=== PATIENT | male | born 1955 | race African-American/Black ===

== ENCOUNTER 2019-01-06 18:56 | Inpatient (IN) ==
[2019-01-06] MEDS ORDERED: NS 1,000 ML IV ONE ×2 (19:28→21:50)
[2019-01-06 19:56] LABS: BASO# 0.01 X1000 (0.0-0.2); BASO% 0.1 % (0.0-0.8); EOS# 0.11 X1000 (0.0-0.7); EOS% 1.2 % (0.0-10.0); HEMOGLOBIN 13.5 g/dL (14.0-18.0); IMM GRAN# 0.05 X1000 (0.0-0.04); IMM GRAN% 0.5 % (0.0-0.5); LYMPH# 0.41 X1000 (1.2-3.4); LYMPH% 4.4 % (20.5-51.1); MCH 31.4 PG (27-31); MCHC 34.6 g/dL (33-37); MCV 90.7 FL (81-99); MONO# 0.27 X1000 (0.11-0.59); MONO% 2.9 % (1.7-9.3); MPV 10.4 FL (7.4-10.4); NEUT# 8.45 X1000 (1.4-6.5); NEUT% 90.9 % (42.2-75.2); PLT 55 X1000 (130-400); RDW 12.8 % (11.5-14.5)
[2019-01-06] MEDS ORDERED: MAXIPIME 2 GM in NS 100 ML IV ONE (20:02)
[2019-01-06 20:30] LABS: ALB/GLOB RATIO 2.5; ALBUMIN 4.3 g/dL (3.5-5.0); CALCIUM 9.2 mg/dL (8.8-10.2); CREATININE 1.6 mg/dL (0.7-1.2); POTASSIUM 3.8 mmol/L (3.5-5.1); TOTAL BILIRUBIN 1.28 mg/dL (0.20-1.00)
[2019-01-06 20:35] LABS: INR 1.25; PROTIME 16.6 Seconds (11.0-16.0)
[2019-01-06 20:36] LABS: PTT 53.2 Seconds (22.3-41.8)
[2019-01-06] MEDS ORDERED: FENTANYL IV ONE (20:44)
[2019-01-06] MEDS ORDERED: VANCOMYCIN 1 GM/NS 1 GM/250 ML IVPB IV ONE (20:45)
--- NOTE | 2019-01-06 20:52 | Diag Imaging Result Doc PS360 ---
CHEST-2 VIEWS - 01/06/2019 INDICATION: cough COMPARISON: 04/27/2018 FINDINGS: There is extensive left lower lobe infiltrate compatible with pneumonia. Stable left chest port in good position. The right lung is clear. No pneumothorax or pleural effusion. IMPRESSION: Left lower lobe pneumonia. Electronically signed by Sean Del Rio 01/06/2019 8:50 PM
--- NOTE | 2019-01-06 21:34 | Diag Imaging Result Doc PS360 ---
CT ABD/PELVIS W/IV CONT ONLY - 01/06/2019 INDICATION: abdominal pain; fever; lymphoma COMPARISON: 08/19/2018, 06/13/2014 FINDINGS: There is severe infiltrate throughout the left lower lobe and a small amount lingula. There is also small infiltrate in the right lower lobe. Heart size is normal with no pericardial effusion. There are several bilateral nonobstructing renal stones. There is bilateral renal scarring. No adenopathy. There is some mild nonspecific edema at the root of the mesentery. The pancreas is atrophic. The liver, gallbladder, spleen, and adrenals are normal. No bowel obstruction or inflammation. Urinary bladder, prostate, and rectum are normal. There are moderate degenerative changes of the spine. No acute or suspicious bony lesion. IMPRESSION: 1. Significant bilateral multilobar pneumonia. 2. Bilateral nonobstructing renal stones and renal scarring stable from prior exams. This exam was performed using automated exposure control, adjustment of mA or kV according to patient size, and/or use of iterative reconstruction technique Electronically signed by Sean Del Rio 01/06/2019 9:32 PM
[2019-01-06 21:45] LABS: URINE SOURCE CLEAN CATCH
--- NOTE | 2019-01-06 22:05 | PROVIDER DOCUMENTATION ---
This chart was entered by Michaela Nino Scribe, acting as scribe for Carlitos Johnston MD. HPI-Respiratory General - General Chief Complaint: Possible Sepsis-D Stated Complaint: PNEUMONIA, HARD TO BREATHE(SENT FROM [facility]) Time Seen by Provider: 01/06/19 19:07 Source: patient Allergies/Adverse Reactions: Patient Allergies Allergy/AdvReac Type Severity Reaction Status Date / Time No Known Allergies Allergy Verified 04/24/18 15:00 Home Medications: Home Medication List Medication Instructions Recorded Confirmed Last Taken Type Albuterol Sulfate [Proair Hfa] 2 puff IH Q4-6H PRN PRN #1 12/04/13 01/06/19 Unknown Rx hfa.aer.[email or web address] Carbidopa/Levodopa [Carbidopa-Levo 37.5 - 150 mg PO TID 04/24/18 01/06/19 History 25-100 Tab] Cetirizine HCl 10 mg PO DAILY 04/24/18 01/06/19 04/23/18 History Ipratropium/Albuterol Sulfate 3 ml IH Q6H PRN 04/24/18 01/06/19 04/23/18 History [Iprat-Albut 0.5-3(2.5) mg/3 ml] Lovastatin 20 mg PO QHS 04/24/18 01/06/19 04/23/18 History Metoclopramide [Reglan] 10 mg PO Q6HR PRN 04/24/18 01/06/19 Unknown History Sennosides/Docusate Sodium [Senna 1 each PO DIRECTED 04/24/18 01/06/19 History Plus Tablet] Folic Acid 1 mg PO DAILY 01/06/19 01/06/19 Unknown History Spironolactone 25 mg PO DAILY 01/06/19 01/06/19 Unknown History - History of Present Illness-Resp Nature of Presenting Problem: Pt is 63/M presenting to ED from [facility], for pneumonia. He has n/v/d and c/o reddish colored sputum.Pt has hx of lymphoma Quality of Pain: reports: none Severity in ED: reports: moderate Onset/Duration: reports: other (cough for 2 weeks, dx w/ pneumonia today) Timing: reports: still present Cough Quality/Degree: reports: moderate, blood streaked sputum Current Respiratory Medication Therapy: Initiated none Modifying Factors: improves with: nothing Associated Symptoms: reports: cough, fever/chills, shortness of breath, short of breath Similar Symptoms Previously?: No Recently seen or treated by another doctor?: No Review of Systems - Adult - REVIEW OF SYSTEMS - ADULT Constitutional: reports: fever Eyes: reports: no symptoms reported Ears, Nose, Mouth & Throat: reports: no symptoms reported Cardiovascular: denies: chest pain, edema Respiratory: reports: cough, shortness of breath Gastrointestinal: reports: diarrhea, nausea, vomiting Genitourinary: reports: no symptoms reported Musculoskeletal: reports: no symptoms reported Integumentary: reports: no symptoms reported Neurological: reports: no symptoms reported. denies: dizziness/vertigo, headache/migraines Psychiatric: reports: no symptoms reported Endocrine: reports: no symptoms reported Hematologic/Lymphatic: reports: no symptoms reported Allergic/Immunologic: reports: no symptoms reported All Other Systems: Reviewed and Negative Past History - Adult - PAST MEDICAL HISTORY-ADULT Review of Records: reports: Old Records Reviewed, Nursing Assessment Review, Medications Reviewed, Social history reviewed & non-contributory. Major Childhood Illnesses: reports: denies history Cardiovascular: reports: denies history Respiratory: reports: denies history Gastrointestinal: reports: GERD Obstetrical/Gynecological: reports: denies history Genitourinary: reports: denies history Musculoskeletal: reports: denies history Neurological: reports: denies history Psychiatric: reports: denies history Endocrine/Immune: reports: denies history Other Conditions: reports: denies history - PRIOR SURGERIES/PROCEDURES Surgical/Procedure History: reports: reviewed, not pertinent - IMMUNIZATION STATUS Childhood Immunizations: See Nurse Assessment Flu Vaccine: See Nurse Assessment - FAMILY HISTORY Family History: reviewed, not pertinent - SOCIAL HISTORY Smoking: quit greater than 1 year Alcohol Use Frequency: never Living Situation: family Physical Exam-General - PHYSICAL EXAM-ADULT Initial Vital Signs Reviewed: Yes - CONSTITUTIONAL General Appearance: alert, other (frail looking) - EYES Eyes: PERRL/EOMI - HEAD, EARS, NOSE, MOUTH & THROAT HENMT: moist mucous membranes, normal ENT inspection, TMs normal, pharynx normal - NECK Neck: non-tender, full range of motion, supple - RESPIRATORY Respiratory: chest non-tender, decreased breath sounds, crackles (bilateral) - CARDIOVASCULAR Cardiovascular: no edema, tachycardia (126) - GASTROINTESTINAL (ABDOMEN) Abdominal Exam: normal bowel sounds, non tender, soft - LYMPHATIC Lymphatic: no adenopathy - MUSCULOSKELETAL Back Exam: normal inspection, no CVA tenderness, no vertebral tenderness Extremity: normal range of motion, non-tender, other - SKIN Integumentary: normal color, warm/dry - NEUROLOGIC Neurologic: other (resting tremors) - PSYCHIATRIC Psych/Mental Status: normal thought content, normal thought process, oriented x 3 Progress - PLAN OF CARE/RESULTS Progress/Plan/Lab Results: Vital Signs - 8 hr 01/06/19 19:02 01/06/19 19:37 01/06/19 19:39 Temperature 101.3 F H Pulse Rate 126 H 119 H 120 H Respiratory Rate 23 24 26 H Blood Pressure 100/64 93/53 O2 Sat by Pulse Oximetry 99 95 01/06/19 19:40 01/06/19 19:57 01/06/19 19:58 Temperature Pulse Rate 120 H 115 H 116 H Respiratory Rate 19 26 H 26 H Blood Pressure 117/77 O2 Sat by Pulse Oximetry 95 98 01/06/19 20:00 01/06/19 20:01 01/06/19 20:10 Temperature Pulse Rate 115 H 115 H 112 H Respiratory Rate 26 H 26 H 26 H Blood Pressure 110/64 O2 Sat by Pulse Oximetry 100 100 99 01/06/19 20:20 01/06/19 20:30 01/06/19 20:31 Temperature Pulse Rate 110 H 111 H 111 H Respiratory Rate 26 H 26 H 27 H Blood Pressure 117/74 O2 Sat by Pulse Oximetry 100 99 99 01/06/19 20:40 01/06/19 20:50 01/06/19 21:00 Temperature Pulse Rate 112 H 111 H 113 H Respiratory Rate 29 H 26 H 26 H Blood Pressure O2 Sat by Pulse Oximetry 98 99 98 01/06/19 21:01 01/06/19 21:37 01/06/19 21:39 Temperature Pulse Rate 112 H 112 H Respiratory Rate 26 H 26 H Blood Pressure 128/70 99/58 O2 Sat by Pulse Oximetry 98 96 96 01/06/19 21:40 01/06/19 21:46 Temperature 100.3 F H Pulse Rate 112 H Respiratory Rate 26 H Blood Pressure O2 Sat by Pulse Oximetry 99 01/06/19 19:28 Influenza Screen - Final Nasopharyngeal Laboratory Results - last 24 hr 01/06/19 01/06/19 01/06/19 19:28 19:28 19:28 WBC 9.30 RBC 4.30 L Hgb 13.5 L Hct 39.0 L MCV 90.7 MCH 31.4 H MCHC 34.6 RDW Std Deviation 12.8 Plt Count 55 L MPV 10.4 Immature Gran % (Auto) 0.5 Neut % (Auto) 90.9 H Lymph % (Auto) 4.4 L [place] % (Auto) 2.9 Eos % (Auto) 1.2 Baso % (Auto) 0.1 Immature Gran # (Auto) 0.05 H Neut # (Auto) 8.45 H Lymph # (Auto) 0.41 L [place] # (Auto) 0.27 Eos # (Auto) 0.11 Baso # (Auto) 0.01 PT 16.6 H INR 1.25 PTT (Actin FS) 53.2 H Sodium 136 Potassium 3.8 Chloride 97 L Carbon Dioxide 23 L Anion Gap 16 BUN 37 H Creatinine 1.6 H Estimated GFR/1.73 m2 53 BUN/Creatinine Ratio 23 Glucose 108 H Calculated Osmolality 281 Calcium 9.2 Total Bilirubin 1.28 H AST 14 ALT 41 Alkaline Phosphatase 109 Creatine Kinase 45 Troponin T [id number]-I-Vwkxrcccahc Pept Total Protein 6.0 L Albumin 4.3 Globulin 1.7 Albumin/Globulin Ratio 2.5 Plasma Lactate Urine Source 01/06/19 01/06/19 01/06/19 19:28 19:28 19:28 WBC RBC Hgb Hct MCV MCH MCHC RDW Std Deviation Plt Count MPV Immature Gran % (Auto) Neut % (Auto) Lymph % (Auto) [place] % (Auto) Eos % (Auto) Baso % (Auto) Immature Gran # (Auto) Neut # (Auto) Lymph # (Auto) [place] # (Auto) Eos # (Auto) Baso # (Auto) PT INR PTT (Actin FS) Sodium Potassium Chloride Carbon Dioxide Anion Gap BUN Creatinine Estimated GFR/1.73 m2 BUN/Creatinine Ratio Glucose Calculated Osmolality Calcium Total Bilirubin AST ALT Alkaline Phosphatase Creatine Kinase Troponin T < 0.010 Wum-S-Klknimnslfa Pept 242 H Total Protein Albumin Globulin Albumin/Globulin Ratio Plasma Lactate 1.9 Urine Source 01/06/19 21:36 WBC RBC Hgb Hct MCV MCH MCHC RDW Std Deviation Plt Count MPV Immature Gran % (Auto) Neut % (Auto) Lymph % (Auto) [place] % (Auto) Eos % (Auto) Baso % (Auto) Immature Gran # (Auto) Neut # (Auto) Lymph # (Auto) [place] # (Auto) Eos # (Auto) Baso # (Auto) PT INR PTT (Actin FS) Sodium Potassium Chloride Carbon Dioxide Anion Gap BUN Creatinine Estimated GFR/1.73 m2 BUN/Creatinine Ratio Glucose Calculated Osmolality Calcium Total Bilirubin AST ALT Alkaline Phosphatase Creatine Kinase Troponin T Fxb-M-Lyzfpuohccy Pept Total Protein Albumin Globulin Albumin/Globulin Ratio Plasma Lactate Urine Source CLEAN CATCH Orders Category Date Time Status Cardiac Monitoring DIRECTED Care 01/06/19 19:06 Active IV Insertion ORDERED Care 01/06/19 19:06 Completed Notify MD of + Sepsis Screen NOW Care 01/06/19 19:06 Active Notify Physician As Ordered Care 01/06/19 19:06 Active CHEST-2 VIEWS [RAD] Stat Exams 01/06/19 19:[address] ABD/PELVIS W/IV CONT ONLY [CT] Stat Exams 01/06/19 20:46 Completed BLOOD CULTURE [BLDCUL] Stat Lab 01/06/19 20:20 Results CBC WITH DIFF [HEME] Stat Lab 01/06/19 19:28 Completed CK PROFILE [SP CHEM] Stat Lab 01/06/19 19:28 Completed COMPREHENSIVE METABOLIC PANEL [CHEM] Stat Lab 01/06/19 19:28 Completed INFLUENZA SCREEN A/B Stat Lab 01/06/19 19:28 Completed INFLUENZA SCREEN A/B Stat Lab 01/06/19 20:09 Ordered LACTATE, PLASMA [CHEM] Lab 01/06/19 22:15 Uncollected LACTATE, PLASMA [CHEM] Lab 01/07/19 01:15 Uncollected LACTATE, PLASMA [CHEM] Q3H Lab 01/06/19 19:28 Completed PRO B-NATRIURETIC PEPTIDE Stat Lab 01/06/19 19:28 Completed PROTIME WITH INR [COAG] Stat Lab 01/06/19 19:28 Completed PTT [COAG] Stat Lab 01/06/19 19:28 Completed TROPONIN T Stat Lab 01/06/19 19:28 Completed URINALYSIS W/POSS RFLX CULT [URINALYSIS] Stat Lab 01/06/19 21:36 Results 0.9% Sodium Chloride Inj [Ns] 1,000 ml Med 01/06/19 21:50 Active IV 120 mls/hr 0.9% Sodium Chloride Inj [Ns] 1,000 ml Med 01/06/19 19:28 Discontinued IV 999 mls/hr CefEPIME [Maxipime] 2 gm Med 01/06/19 20:02 Discontinued 0.9% Sodium Chloride Inj [Ns] 100 ml IV NOW Fentanyl Med 01/06/19 20:44 Discontinued 100 microgm IV NOW ONE Vancomycin 1 gm/Ns Med 01/06/19 20:45 Discontinued 1 gm in 250 ml IV NOW Oxygen Device Stat Oth 01/06/19 19:06 Active EKG [EKG] Stat Ther 01/06/19 20:04 Ordered Result Diagrams: 01/06/19 19:28 01/06/19 19:28 - CT/MRI 1 CT Study: Abdomen Impression: Abnormal ( CT ABD/PELVIS W/IV CONT ONLY - 01/06/2019 INDICATION: abdominal pain; fever; lymphoma COMPARISON: 08/19/2018, 06/13/2014 FINDINGS : There is severe infiltrate throughout the left lower lobe and a small amount lingula. There is also small infiltrate in the right lower lobe. Heart size is normal with no pericardial effusion. There are several bilateral nonobstructing renal stones. There is bilateral renal scarring. No adenopathy. There is some mild nonspecific edema at the root of the mesentery. The pancreas is atrophic. The liver, gallbladder, spleen, and adrenals are normal. No bowel obstruction or inflammation. Urinary bladder, prostate, and rectum are normal. There are moderate degenerative changes of the spine. No acute or suspicious bony lesion. IMPRESSION: 1. Significant bilateral multilobar pneumonia. 2. Bilateral nonobstructing renal stones and renal scarring stable from prior exams. This exam was performed using automated exposure control, adjustment of mA or kV according to patient size, and/or use of iterative reconstruction technique Electronically signed by Sean Del Rio 01/06/2019 9:32 PM 01/06/192131 Interpreting Physician: Sean Del Rio MD Dictated Date/Time: 01/06/[id number]) - CONSULTS/PCP/HOSPITALIST Notification #1 *Consult/PCP/Hospitalist*: Dr. Pineda Time Discussed: 22:04 Consult Disposition: Admit Departure - Departure Date of Disposition Decision: 01/06/19 Time of Disposition Decision: 22:04 DIAGNOSIS: Thrombocytopenia Pneumonia Qualifiers: Pneumonia type: due to unspecified organism Laterality: bilateral Lung location : unspecified part of lung Qualified Code(s): J18.9 - Pneumonia, unspecified organism Sepsis Qualifiers: Sepsis type: sepsis due to unspecified organism Qualified Code(s): A41.9 - Sepsis, unspecified organism Disposition: ADMITTED INPATIENT 09 Certified Medical Emergency: Emergent Condition: Critical Referrals and Follow-Ups: Gregory Villalobos MD [Primary Care Provider] - - Critical Care Note This patient required my direct & personal management of CC.: No Total Time (mins): 42 Critical Care Statement: This patient required my direct personal management to treat or rule out processes, the absence of which, could potentiallly result in sudden, clinically significant life or limb threatening deterioration. Attestation - Physician/ JOANN Attestation Patient care was provided by Advanced Practice Provider:: No The physician spent face to face time with patient:: Yes Advanced Practice Provider documentation review:: Supervising physician onsite and consulted in the evaluation and care of this patient. The physician did have a face to face encounter with the patient. This chart was documented by the indicated scribe, (Michaela Nino Scribe) and accurately reflects the services I performed and decisions made by me, Carlitos Johnston MD, as attested by the provider's signature.
[2019-01-06 22:35] LABS: BILIRUBIN URINE NEGATIVE (NEGATIVE); BLOOD URINE NEGATIVE (NEGATIVE); COLOR ORANGE; GLUCOSE URINE NEGATIVE (NEGATIVE); KETONE URINE TRACE mg/dL (NEGATIVE); LEUKOCYTES URINE NEGATIVE (NEGATIVE); NITRITE URINE NEGATIVE (NEGATIVE); PH URINE 5.5; PROTEIN URINE 30 mg/dL (NEGATIVE); SP GRAVITY URINE 1.036; TURBIDITY URINE CLEAR (CLEAR); UR EPITHELIAL CELLS <10 /HPF (<10); URINE BACTERIA NEGATIVE /HPF; URINE RBC <10 /HPF (<10); URINE WBC <10 /HPF (<10); UROBILINOGEN URINE NORMAL (NORMAL)
[2019-01-06] MEDS ORDERED: VANCOMYCIN IV PER PHARMACY MISC SCH (23:15)
[2019-01-07] MEDS ORDERED: VANCOMYCIN 850 MG in NS 250 ML IV ONE (01:00)
[2019-01-07] MEDS ORDERED: ZOFRAN IV PRN (02:00)
[2019-01-07] MEDS: TESSALON PO PRN ×2 (02:48→09:55)
[2019-01-07] MEDS: NORCO-7.5 PO PRN ×3 (02:48→17:30)
[2019-01-07] MEDS: NS 1,000 ML IV SCH ×5 (02:50→21:34)
--- NOTE | 2019-01-07 02:50 | HISTORY AND PHYSICAL ---
PRIMARY CARE PHYSICIAN: Dr. Villalobos. CHIEF COMPLAINT: Cough, fevers and shortness of breath x2 weeks. HISTORY OF PRESENTING ILLNESS: A 63-year-old male with a history of lymphoma and Parkinson's had presented to the emergency department with 2 weeks history of having a productive cough, fever and shortness of breath. The patient states that it was worsening. His cough was becoming more productive of yellowish material. He was not feeling well. He states that his shortness of breath was also worsening. The patient was seen in the emergency department. He had imaging done which did show a left lower lobe pneumonia. Due to his presenting symptoms, he will need admission for further management. At the time of my examination, patient had denied any headache, nausea, vomiting, diarrhea, chest pain, hemoptysis, but complained of shortness of breath, cough and fever. PAST MEDICAL HISTORY: Includes lymphoma, Parkinson's. PAST SURGICAL HISTORY: None. ALLERGIES: No known drug allergies. CURRENT MEDICATIONS: Include the following: Carbidopa/levodopa 2500 p.o. t.i.d., folic acid 1 mg p.o. daily, lovastatin 20 mg p.o. at bedtime, Reglan 10 mg p.o. q.6 hours, spironolactone 25 mg p.o. daily. SOCIAL HISTORY: No history of smoking, alcohol or illicit drug use. FAMILY HISTORY: No history of coronary artery disease. REVIEW OF SYSTEMS: Fourteen point review of systems as listed in HPI. Other systems negative. PHYSICAL EXAMINATION: GENERAL: Cooperative, friendly male. He is resting more comfortably now. VITAL SIGNS: Temperature 100.3 degrees, pulse 107, respirations 22, blood pressure 110/66. HEENT: Atraumatic, normocephalic. Extraocular movements intact. PERRLA. NECK: No masses. CHEST: Bibasilar rales. CARDIOVASCULAR: Regular rate and rhythm. ABDOMEN: Soft, positive bowel sounds. EXTREMITIES: No edema. NEUROLOGIC: He is awake, alert, oriented x3. GENITOURINARY: No bladder distention. SKIN: Warm. LABORATORIES AND STUDIES: WBCs 9.30, hemoglobin 13.5, hematocrit 39.0, platelets 55,000. Sodium 136, potassium 3.8, chloride 97, CO2 is 23, BUN is 37, creatinine is 1.6, glucose is 108. Chest x- ray shows left lower lobe pneumonia. ASSESSMENT: A 63-year-old male with a history of lymphoma and Parkinson's had presented to emergency department with 2 weeks history of having cough, fever and shortness of breath. He states the symptoms were worsening. He was evaluated in the emergency department. He had imaging done which did show a left lower lobe pneumonia. Subsequently, he will require admission for further management. 1. Left lower lobe pneumonia. 2. Parkinson's. 3. Lymphoma. 4. Abnormal CAT scan showing bilateral renal stones that are nonobstructing. PLAN: 1. We will admit patient to medical floor with telemetry. 2. We will check blood cultures. Start patient on IV antibiotics. 3. Restart other home medications. 4. Put patient on DVT prophylaxis with SCDs. 5. We will continue to follow, and reassess and make further recommendation based on patient's clinical course. cc: Wicho Pineda MD
[2019-01-07] MEDS: DUONEB (A & A) INH SCH ×7 (03:30→23:35)
[2019-01-07] MEDS: MAXIPIME 2 GM in NS 100 ML IV SCH ×2 (04:29→13:48)
[2019-01-07 07:55] LABS: BASO# 0.01 X1000 (0.0-0.2); BASO% 0.2 % (0.0-0.8); EOS# 0.03 X1000 (0.0-0.7); EOS% 0.6 % (0.0-10.0); HEMATOCRIT 32.3 % (42.0-52.0); HEMOGLOBIN 10.9 g/dL (14.0-18.0); LYMPH# 0.35 X1000 (1.2-3.4); LYMPH% 6.5 % (20.5-51.1); MCH 31.6 PG (27-31); MCHC 33.7 g/dL (33-37); MCV 93.6 FL (81-99); MONO# 0.33 X1000 (0.11-0.59); MONO% 6.2 % (1.7-9.3); MPV 10.4 FL (7.4-10.4); NEUT# 4.63 X1000 (1.4-6.5); NEUT% 86.5 % (42.2-75.2); RBC 3.45 XMIL (4.7-6.1); RDW 12.8 % (11.5-14.5); WBC 5.35 X1000 (4.8-10.8)
[2019-01-07 07:57] LABS: PLT 39 X1000 (130-400)
[2019-01-07 08:04] LABS: AGAP 11; BUN 35 mg/dL (8-22); CALCIUM 8.5 mg/dL (8.8-10.2); CHLORIDE 105 mmol/L (98-107); COSMO 284; CREATININE 1.1 mg/dL (0.7-1.2); ESTIMATED GFR > 60; GLUCOSE 96 mg/dL (70-104); POTASSIUM 4.2 mmol/L (3.5-5.1); SODIUM 138 mmol/L (136-145); TCO2 22 mmol/L (25-35)
[2019-01-07 08:52] LABS: BANDS 4 % (0-1); EOS 2 % (1-10); LYMPHS 8 % (21-51); MONO 4 % (1-9); SEGS 80 % (42-75)
[2019-01-07] MEDS: FOLIC ACID PO SCH (09:55)
[2019-01-07] MEDS: SINEMET 25/100 PO SCH ×3 (09:55→17:30)
[2019-01-07] MEDS: ALDACTONE PO SCH (09:55)
[2019-01-07] MEDS: ROBITUSSIN-AC PO PRN ×3 (11:40→21:33)
[2019-01-07] MEDS: MEVACOR PO SCH (21:33)
--- NOTE | 2019-01-07 22:33 | HEMO/ONC CONSULTATION ---
DATE: 01/07/2019 CHIEF COMPLAINT: We are being consulted for further evaluation of patient's lymphoma. HISTORY OF PRESENT ILLNESS: Mr. Martini is a 63-year-old male that presented to the emergency department after being seen at [facility] surgery for increased shortness of breath and cough. He was sent there for pneumonia. Patient denies any nausea, vomiting, diarrhea, no chest pain. The patient discussed that he has had this cough for approximately 2 weeks and continues get worse with his shortness of breath. While in emergency department patient had a CT that showed significant bilateral multi lobe pneumonia with bilateral nonobstructing renal stones and renal scarring. Patient was admitted that time for further evaluation and treatment. Mr. 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 The patient received R-CVP in late 2008 and then also had Treanda and Rituxan completed 4 cycles in 04/2013. Patient's lymphoma ER CC 4 more cycles Rituxan and fludarabine and patient December 2016 and since then his follicular lymphoma is very well under control. PAST MEDICAL HISTORY: Lymphoma and Parkinson's . PAST SURGICAL HISTORY: None. ALLERGIES: No known drug allergies. HOME MEDICATIONS: Carbidopa/levodopa, folic acid, lovastatin, Reglan, spironolactone. SOCIAL HISTORY: Denies any tobacco, alcohol, illicit drug use. FAMILY HISTORY: Noncontributory. REVIEW OF SYSTEMS: Negative unless mentioned HPI. PHYSICAL EXAM: Vital Signs: Temperature 98.2 degrees, heart rate 85, respiratory 16, blood pressure 106/65 saturating 100% nasal cannula. General: Patient is awake lying in bed no acute distress noted. HEENT: Anicteric sclerae mucus membranes are moist. Neck: Supple, trachea midline, no JVD. Lymph node survey: Palpable lymphadenopathy. Chest: Bilateral breath sounds with rales bilaterally. Cardiovascular: S1, S2. Regular rate and rhythm. Abdomen: Soft , nontender bowel sounds present all 4 quadrants. Skin: Warm, dry, and intact, no petechiae, no clubbing, no rashes, cyanosis. Neurologic: Alert and oriented x3, no focal deficits noted. LABORATORY DATA: White cell count 5.35, hemoglobin 10.9, hematocrit 32.3, platelets are 39,000, potassium 4.2, BUN 35, creatinine 1.1. Radiology results CT of the abdomen pelvis shows significant bilateral multi lobe pneumonia and bilateral nonobstructing renal stones. ASSESSMENT AND PLAN: 1. Follicular non-Hodgkin's lymphoma: Patient lymphoma very well under control. Patient has not received treatment since December 2016. Continue to monitor. 2. Pneumonia: Continue antibiotics as ordered primary medical team, continue per their recommendations. 3. Thrombocytopenia: Platelet count today 39,000. Patient's platelets over the last 8 weeks have been run anywhere from 92,000 to 108,000. Most likely this is bone marrow suppression caused by his current illness. Will continue to monitor closely. May transfuse for platelets less than 20,000 or for any signs of bleeding. 4. Parkinson's, continue initial primary medical team. Dictated by MICHAEL Gillespie for Tito Aquino MD [facility]
[2019-01-08] MEDS: NORCO-7.5 PO PRN ×4 (00:08→21:18)
--- NOTE | 2019-01-08 00:48 | PROGRESS NOTE ---
DATE: 01/07/2019 SUBJECTIVE: This morning Mr. Martini refers to be doing a little better. Mr. Martini got admitted yesterday, mainly because of progressively worsening shortness of breath, tachycardia, fever of 101.3. Imaging studies did reveal multifocal pneumonia. He is currently admitted with double coverage of antibiotics (cefepime and vancomycin). He seems to be doing a lot better. He said he is still coughing, but not as much as before. Ms. Martini is known to have non-Hodgkin's lymphoma. Follows up with Dr. Aquino. He said he is not currently on any chemo, but he has been taking some immune modulator therapy, which he is not sure of the name. OBJECTIVE: Vital Signs: Blood pressure is 100/54, pulse is 89, respirations 15, temperature 98.6 degrees. General: Mr. Martini is a 63-year-old gentleman. He is in bed. He is not in any cardiopulmonary distress. Mucosa is pink and moist. Anicteric. Acyanotic. Neck: Supple. Chest: Air entry was bilaterally reduced, more so to the left posterior lung field. There is diffuse crackles posteriorly, worse on the left posterior lung field. Cardiovascular: Tachycardic, but no murmurs, no rubs, no gallops. Abdomen: Soft, nontender. Bowel sounds present. Extremities: No pedal edema. CHAIN BUILDER: Patient was awake, alert, oriented. There is no focal neurological deficit. LABORATORY DATA: WBC 5.35, hemoglobin 10.9, platelet count of 39. There was 4% bands on the peripheral smear. PT was 16.5, INR was 1.25. Sodium is 138, potassium is 4.2, chloride is 105, bicarb is 23, creatinine has come down to 1.1 from 1.6 on admission. IMAGING STUDIES: Reviewed. A chest x-ray did show left lower lobe pneumonia. A CT scan of the abdomen showed significant bilateral multilobe pneumonia. ASSESSMENT AND PLAN: 1. Sepsis on presentation, secondary to multilobar pneumonia. Patient is currently on double coverage of broad-spectrum antibiotics. Blood cultures have been ordered. We will order a sputum culture as well. 2. Thrombocytopenia. Etiology is unclear. This is associated with abnormality in the coagulation parameters as well. Unsure if it is due to disseminated intravascular coagulation, or it is just secondary to the current sepsis. We will do a fibrinogen level, and we will repeat the INR and follow it up accordingly. 3. Acute kidney injury. Creatinine is now normalized, to 1.1 from 1.6. We will continue with gentle hydration. 4. Multilobar pneumonia. 5. History of lymphoma. We will consult his oncologist, Dr. Aquino. 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 We will repeat this and replace IgG E if still low. 7. History of Parkinson's. Patient is on Sinemet. cc: Anthony Austin MD
[2019-01-08] MEDS ORDERED: VANCOMYCIN 1,200 MG in NS 250 ML IV SCH (01:00)
[2019-01-08] MEDS: ROBITUSSIN-AC PO PRN ×4 (01:42→19:50)
[2019-01-08] MEDS: MAXIPIME 2 GM in NS 100 ML IV SCH ×3 (02:51→19:51)
[2019-01-08] MEDS: DUONEB (A & A) INH SCH ×6 (03:35→23:08)
[2019-01-08 07:45] LABS: INR 1.06; PROTIME 14.7 Seconds (11.0-16.0)
[2019-01-08 08:11] LABS: IRON SATURATION 19 %; TIBC 138 ug/dL; TOTAL IRON 26 ug/dL (53-167); UNBOUND IRON 112 ug/dL (112-346)
[2019-01-08] MEDS: ALDACTONE PO SCH (08:22)
[2019-01-08] MEDS: SINEMET 25/100 PO SCH ×3 (08:22→17:09)
[2019-01-08] MEDS: FOLIC ACID PO SCH (08:22)
[2019-01-08 08:32] LABS: EOS# 0.11 X1000 (0.0-0.7); EOS% 2.6 % (0.0-10.0); HEMOGLOBIN 10.1 g/dL (14.0-18.0); LYMPH# 0.46 X1000 (1.2-3.4); LYMPH% 11.1 % (20.5-51.1); MCH 31.5 PG (27-31); MCHC 33.7 g/dL (33-37); MCV 93.5 FL (81-99); MONO# 0.35 X1000 (0.11-0.59); MONO% 8.4 % (1.7-9.3); MPV 10.8 FL (7.4-10.4); NEUT# 3.24 X1000 (1.4-6.5); NEUT% 77.9 % (42.2-75.2); RBC 3.21 XMIL (4.7-6.1); RDW 12.4 % (11.5-14.5); WBC 4.16 X1000 (4.8-10.8)
[2019-01-08 08:32] LABS: FERRITIN 1112 ng/mL (30-400)
[2019-01-08 08:35] LABS: PLT 38 X1000 (130-400)
[2019-01-08 08:52] LABS: AGAP 9; ALB/GLOB RATIO 1.1; ALBUMIN 2.8 g/dL (3.5-5.0); ALKALINE PHOSPHATASE 80 U/L (32-122); BUN 18 mg/dL (8-22); CALCIUM 7.7 mg/dL (8.8-10.2); CHLORIDE 109 mmol/L (98-107); COSMO 282; ESTIMATED GFR > 60; GLUCOSE 110 mg/dL (70-104); GOT 10 U/L (10-34); GPT 15 U/L (10-44); POTASSIUM 3.8 mmol/L (3.5-5.1); SODIUM 140 mmol/L (136-145); TCO2 22 mmol/L (25-35); TOTAL BILIRUBIN 0.65 mg/dL (0.20-1.00); TOTAL PROTEIN 5.3 g/dL (6.3-8.3)
--- NOTE | 2019-01-08 12:57 | PROGRESS NOTE ---
DATE: 01/08/2019 SUBJECTIVE: This morning, Mr. Martini refers to feel generalized weakness. No fever. No chest pain. He still has some residual shortness of breath and cough. OBJECTIVE: Vital signs: Blood pressure is 122/69, pulse is 95, respirations 16, temperature 98.4 degrees, the patient was saturating 95% on room air. General: Mr. Martini is a 63-year-old gentleman. He is in bed. He is not in any cardiopulmonary distress. HEENT: Mucosa is slightly pale, but anicteric and acyanotic. Neck: Supple. Chest: Air entry is bilaterally reduced. There are crackles posteriorly in both lungs, more on the left side than the right. Cardiovascular: Regular rate and rhythm. No murmurs, no rubs, no gallops. [place] beat is at 5th intercostal space, midclavicular line. GI: Abdomen soft, nontender. Bowel sounds present. There is no hepatosplenomegaly. Extremities: No pedal edema. Distal pulses present. MILITARY ANALYST: Patient is awake, alert, oriented. No focal neurological deficit. LABORATORY DATA: WBC is 4.16, hemoglobin is 10.1, platelet count of 38,000. Chemistry is also reviewed. Sodium is 140, potassium is 3.8, chloride is 109, bicarb is 22. Microbiology data shows blood cultures positive for gram-negative rods. Influenza is negative. Sputum culture still pending. ASSESSMENT: 1. Sepsis on presentation associated with gram-negative shayan bacteremia. The patient is currently on IV antibiotics. We will repeat the blood cultures tomorrow. We will also get Infectious Disease to evaluate the patient. 2. Multilobar pneumonia. The patient is on cefepime and vancomycin. Today is day one. We will repeat a chest x-ray tomorrow. We are still also pending the sputum culture. Urine antigen for streptococcal pneumonia and Legionella have all been ordered and will be pending the results as well as the immunoglobulin levels. 3. Thrombocytopenia, likely associated with the sepsis, noted. Patient's platelet count is still low, but patient is not bleeding. At this point we will continue to follow. 4. Acute kidney injury, improved. 5. History of lymphoma, patient follows up with Dr. Aquino. He has been consulted. Hopefully, we will get to see him tomorrow. 6. History of immune deficiency in the past. 7. Parkinson's disease. PLAN: So in general, I think Mr. Martini is fairly stable. We are going to continue with the current IV fluids. We have also optimized his pain medications. We will continue with the antibiotics for now. We will repeat his blood cultures tomorrow and repeat his chest x-ray. We will consult Infectious Disease today. The patient is also pending to be seen by his oncologist. cc: Anthony Austin MD
--- NOTE | 2019-01-08 16:04 | INFECTIOUS DISEASE CONSULT REP ---
DATE: 01/08/2019 CONCLUSION: The patient has pneumonia and a gram-negative shayan bacteremia which I think originates from his bilateral pneumonia. The patient by virtue of having a lymphoma could have an immunoglobulin deficiency. RECOMMENDATIONS: I agree with treating the patient with cefepime. I have increased the dose to 2 g IV every 8 hours. I think we can discontinue vancomycin because the patient is growing a gram- negative shayan in the blood and this most likely also is the cause of his pneumonia. Also, I agree with Dr. Austin drawing immunoglobulin levels and if the IgG level is low, I will order an IVIG infusion. Also, if his IgG level is low, he by virtue of having a lymphoma would most likely be a candidate to have monthly IVIG infusions. DISCUSSION: The patient tells me that for the past two weeks he has had fever and coughing. He said initially the sputum was yellow and now it is red to pink color. He also feels very weak. He also tells me that his chest and abdomen are painful when the patient coughs. The patient also says he is extremely weak. Laboratory studies thus far show a CBC with a white count of 4160, hemoglobin 10.1 and platelet count 38,000. Creatinine is 1.0. GFR is greater than 60. Liver function studies are normal. Blood cultures are growing gram-negative shayan. Urinalysis showed no white cells or bacteria. Chest x-ray shows bilateral infiltrates and CT scan of the abdomen and pelvis also shows bilateral pneumonia and also shows renal calculi that are not causing any blocking in the kidney. PAST MEDICAL HISTORY/REVIEW OF SYSTEMS: Eyes and Ears: The patient does not have any problems seeing or hearing. Neck: No stiffness. Respiratory: See present illness. Gastrointestinal: No nausea, vomiting or diarrhea. Genitourinary: No dysuria or flank pain. Neurologic: No seizures. The patient, as mentioned above, complains of being weak, but that has just occurred in the last two weeks. Endocrine: Patient does not have diabetes or thyroid disease. PREVIOUS HOSPITALIZATIONS AND OPERATIONS: He has previously been in the hospital for pneumonia. He has also had incision and drainage of a perirectal abscess. MEDICAL DISEASES: Positive for lymphoma, Crohn disease, glaucoma, Parkinson disease, and renal calculi. INFECTIOUS DISEASE HISTORY: Positive for pneumonia and perirectal abscess. FAMILY HISTORY: Positive for diabetes mellitus and hypertension. SOCIAL HISTORY: [place] He is . He does not have any pets at home. He does not smoke cigarettes, drink alcoholic beverages or abuse drugs. ALLERGIES: He has no known allergies. HOME MEDICATIONS: Include the following: Carbidopa/levodopa, cetirizine, folic acid, ipratropium/albuterol inhaler, lovastatin, Reglan, Senna Plus tablet and spironolactone. PHYSICAL EXAMINATION: Vital Signs: Temperature is 98.4, pulse 95, respirations 16, blood pressure 122/69. The patient is 5 feet 10 inches tall, weighs 165 pounds. General: This is a fairly healthy-appearing middle-aged male. He is in no acute distress. He did not cough while I was seeing the patient. Head, Eyes, Ears, Nose and Throat: He can hear my spoken words and see near objects. He does not have any white patches on his tongue. Neck: No meningismus. Lungs: Clear to auscultation. Cardiovascular: Heart rate is regular. Abdomen: Soft and nontender. Extremities: His legs are not edematous or tender. Neurologic: Patient is alert. He can move his extremities. There is no tremor. His sensation is intact to touch. His memory as regarding his medical history is intact, as well. Thank you for the consult. cc: Rafael Aquino MD
[2019-01-08] MEDS: MEVACOR PO SCH (19:50)
[2019-01-09] MEDS: NORCO-7.5 PO PRN ×3 (01:18→10:06)
[2019-01-09] MEDS: DUONEB (A & A) INH SCH ×6 (03:19→23:15)
[2019-01-09] MEDS: MEVACOR PO SCH ×2 (04:29→20:24)
[2019-01-09] MEDS: MAXIPIME 2 GM in NS 100 ML IV SCH ×2 (04:46→12:00)
[2019-01-09] MEDS: ROBITUSSIN-AC PO PRN ×4 (04:46→22:25)
[2019-01-09 07:34] LABS: BASO# 0.01 X1000 (0.0-0.2); BASO% 0.3 % (0.0-0.8); EOS# 0.15 X1000 (0.0-0.7); EOS% 3.9 % (0.0-10.0); HEMATOCRIT 29.8 % (42.0-52.0); HEMOGLOBIN 10.1 g/dL (14.0-18.0); IMM GRAN# 0.03 X1000 (0.0-0.04); IMM GRAN% 0.8 % (0.0-0.5); LYMPH# 0.31 X1000 (1.2-3.4); MCH 31.5 PG (27-31); MCHC 33.9 g/dL (33-37); MCV 92.8 FL (81-99); MONO# 0.52 X1000 (0.11-0.59); MONO% 13.4 % (1.7-9.3); MPV 10.7 FL (7.4-10.4); NEUT# 2.85 X1000 (1.4-6.5); NEUT% 73.6 % (42.2-75.2); PLT 42 X1000 (130-400); RBC 3.21 XMIL (4.7-6.1); RDW 11.8 % (11.5-14.5); WBC 3.87 X1000 (4.8-10.8)
[2019-01-09 08:01] LABS: AGAP 11; ALB/GLOB RATIO 1.1; ALBUMIN 2.9 g/dL (3.5-5.0); ALKALINE PHOSPHATASE 103 U/L (32-122); BUN 10 mg/dL (8-22); CALCIUM 8.6 mg/dL (8.8-10.2); CHLORIDE 107 mmol/L (98-107); COSMO 284; CREATININE 1.1 mg/dL (0.7-1.2); ESTIMATED GFR > 60; GLUCOSE 107 mg/dL (70-104); GOT 14 U/L (10-34); GPT 17 U/L (10-44); POTASSIUM 3.4 mmol/L (3.5-5.1); SODIUM 143 mmol/L (136-145); TCO2 25 mmol/L (25-35); TOTAL BILIRUBIN 0.67 mg/dL (0.20-1.00); TOTAL PROTEIN 5.5 g/dL (6.3-8.3)
--- NOTE | 2019-01-09 08:28 | HEMO/ONC PROGRESS NOTE ---
DATE: 01/09/2019 SUBJECTIVE: The patient continues to have some shortness of breath with exertion. Overall, the patient states he is slowly feeling better. OBJECTIVE: Vital Signs: Temperature 98.7 degrees, heart rate 84, respiratory rate 16, blood pressure 130/68, satting 100% on nasal cannula. General: The patient is awake , lying in bed. No acute distress noted. HEENT: Anicteric mucus membranes are dry. Cardiovascular: S1, S2. Regular rate and rhythm. Chest: Bilateral breath sounds with crackles bilaterally. Abdomen: Soft, nontender. Bowel sounds present in all 4 quadrants. Neurologic: Alert and oriented x3. No focal deficits noted. LABORATORY DATA: White blood cell count is 3.87, hemoglobin 10.1, hematocrit 29.8, platelets are 42. Potassium 3.4, BUN 10, creatinine 1.1. ASSESSMENT AND PLAN: 1. Follicular non-Hodgkin's lymphoma. Lymphoma has been well controlled. Continue to just monitor at this time. 2. Multilobar pneumonia. The patient will continue antibiotics as ordered per primary medical team and Infectious Disease. Continue further recommendations. 3. Thrombocytopenia. Platelet count is 142,000. The patient still continues to deny any signs of bleeding. Continue to just monitor at this time, and transfuse if platelet count is less than 20,000 or for any signs of bleeding. Most likely caused by bone marrow suppression due to his illness. 4. Acute kidney injury. Creatinine continues to improve. Continue recommendations per primary medical team. Dictated by MICHAEL Gillespie for Tito Aquino MD Patient seen and examined. So far his non-Hodgkins lymphoma has been treated about 3 times. Last PET scan sometime in 07/2018 revealed minimal lymphadenopathy involving the chest. Patient now admitted with multilobar pneumonia. Continue antibiotics. His IgG levels are low. IgA level is also very low. I am concerned about giving him IVIG infusions. I will check clinic records to see if his IgG or IgA levels have been checked in the past. Tito Aquino M.D. cc: Tito Aquino MD [facility]
--- NOTE | 2019-01-09 09:29 | Diag Imaging Result Doc PS360 ---
EXAM: CHEST-2 VIEWS HISTORY: hypoxia TECHNIQUE: Chest two views COMPARISON: 01/06/2019 FINDINGS: Infiltrates remain in the left lung base. These are more dense than on the prior study. There is basilar atelectasis and a small effusion. No change in the left portacatheter. The right lung remains clear. IMPRESSION: Mild worsening in the left base. Electronically signed by Anthony Kaiser 01/09/2019 9:26 AM
[2019-01-09] MEDS: ALDACTONE PO SCH (09:46)
[2019-01-09] MEDS: FOLIC ACID PO SCH (09:46)
[2019-01-09] MEDS: SINEMET 25/100 PO SCH ×3 (09:46→20:23)
--- NOTE | 2019-01-09 10:34 | EKG Report ---
Test Performed on : 01/06/2019 11:13:54 PM Test Reason : shortness of breath Blood Pressure : / mmHG Vent. Rate : 104 BPM Atrial Rate : 104 BPM P-R Int : 140 ms QRS Dur : 076 ms QT Int : 332 ms P-R-T Axes : 064 034 037 degrees QTc Int : 436 ms Sinus tachycardia. Otherwise normal ECG When compared with ECG of 06-JAN-2019 22:40, (Unconfirmed) Criteria for Lateral infarct are no longer present Unconfirmed Result
--- NOTE | 2019-01-09 13:38 | PROGRESS NOTE ---
DATE: 01/09/2019 SUBJECTIVE: Patient this morning refers to be feeling slightly stronger. He is still coughing up some greenish sputum which is blood-stained. OBJECTIVE: Vital signs: Blood pressure is 138/68, pulse is 84, respirations 16, temperature is 98.7 degrees. General: Mr. Martini is a 63-year-old gentleman. He was in bed. He is not in any cardiopulmonary distress. HEENT: Mucosa is pink and moist. Anicteric. Acyanotic. Neck: Supple. Chest: Air entry was still bilaterally reduced. There are crackles posteriorly in both lung hart. Cardiovascular: Regular rate and rhythm. No murmurs. No rubs. No gallops. GI: Abdomen is soft, nontender. Bowel sounds were present. There is no hepatosplenomegaly. Extremities: No pedal edema. Distal pulses present. PUBLIC HEALTH NURSE: Patient is awake, alert, and oriented. There is no focal neurological deficit. LABORATORY DATA: WBC is down to 3.87, hemoglobin is 10.1, platelet count is 42,000, which is a slight improvement. Chemistry is also reviewed and unremarkable, except potassium was 3.4. The rest of chemistry is unremarkable. Blood cultures have shown Haemophilus influenzae 2/2. Sputum culture is also growing gram- negative shayan which I presume is the same bacteria. ASSESSMENT: 1. Sepsis on presentation associated with Klebsiella pneumoniae bacteremia. The patient is currently on IV antibiotics (cefepime). Today is day 1 on cefepime but a total of 3 days of antibiotics. Blood cultures have been repeated this morning. ID is on board. 2. Multilobe pneumonia, presumably Klebsiella pneumoniae etiology. The patient was initially on vancomycin and cefepime. Vancomycin has been discontinued. Sputum culture is showing gram- negative shayan which I presume is the same pathogen. 3. Thrombocytopenia associated with ongoing infection, improving. 4. Acute kidney injury on presentation, resolved. 5. History of immunoglobulin deficiency, noted. 6. Parkinson disease. Patient is on Sinemet. 7. Protein calorie malnutrition with albumin of 2.8 to 2.9. We will consult dietitian for nutritional support. 8. History of follicular non-Hodgkin lymphoma. Patient follows up with Dr. Aquino. PLAN: So in general, Mr. Martini is a 36-year-old male who is known to have follicular non-Hodgkin lymphoma as per Hematology/Oncology documentation, who follows up with Dr. Aquino, presented to the emergency department on 01/06/2019. Today is day 3 of hospitalization for sepsis as a result of pneumonia. Blood cultures have grown Haemophilus influenzae. The patient is currently on adequate antibiotics. Blood cultures have been repeated. We will follow up with further recommendations from ID and the patient's oncologist. Disposition is going to depend on the rest of the hospital course. cc: Anthony Austin MD
--- NOTE | 2019-01-09 19:46 | INFECTIOUS DISEASE PROGRESS NO ---
DATE: 01/09/2019 PRESENT ILLNESS: The patient has Haemophilus influenzae bacteremia and almost certainly the patient has pneumonia. His sputum is growing a gram-negative shayan, which will be undoubtedly identified as Haemophilus influenzae as well. Unfortunately, the patient has extremely low levels of immunoglobulin. His IgA level is less than 5. His IgM level is less than 3 and his IgG level is 158. MEDICATIONS: The patient is receiving cefepime. PHYSICAL EXAMINATION: Vital Signs: Temperature is 98.2 degrees, pulse 96, respirations 16, blood pressure 141/70. General: This is a somewhat ill-appearing, middle-aged male. He is in no acute distress. Head, eyes, ears, nose, and throat: He can hear my spoken words and see near objects. He does not have any white coating on his tongue. There is no drainage from his nose or ears. Neck: No meningismus. Lungs: Clear to auscultation. Cardiovascular: Heart rate is regular. Abdomen: Soft and nontender. Neurologic: Patient is alert. He can move his extremities. There is no tremor. LAB AND X-RAY: There is no new radiographic study. The patient's CBC shows a white count of 3870, hemoglobin is 10.1, and platelet count is 42,000. Sputum is growing a gram-negative shayan. Blood cultures are growing Haemophilus influenzae. Urinalysis showed no white cells or bacteria. Creatinine is 1.1. GFR is greater than 60. Liver function studies are normal. The patient's IgA level is less than 5. The IgM level is less than 3 and the IgG level is only 158. ASSESSMENT AND PLAN: For right now, I am going to switch the patient from cefepime to Rocephin. The problem is going to be whether we can give the patient IVIG. I have discussed this with Dr. Austin and also with Dr. Aquino and Dr. Aquino is going to check his records to see if the patient has ever had IVIG in the past and if so, what were his levels when he received it. COMORBIDITY: Has a lymphoma and unfortunately he has extremely low IgG and IgA levels. The patient also has Crohn disease, Parkinson disease and a history of renal calculi. cc: Rafael Aquino MD
[2019-01-10] MEDS: MAXIPIME 2 GM in NS 100 ML IV SCH ×4 (00:11→20:33)
[2019-01-10] MEDS: DUONEB (A & A) INH SCH ×6 (03:25→23:19)
[2019-01-10 08:24] LABS: AGAP 14; ALBUMIN 3.1 g/dL (3.5-5.0); BUN 9 mg/dL (8-22); CALCIUM 8.4 mg/dL (8.8-10.2); CHLORIDE 104 mmol/L (98-107); COSMO 278; ESTIMATED GFR > 60; GLUCOSE 90 mg/dL (70-104); PHOSPHORUS 2.6 mg/dL (2.7-4.5); POTASSIUM 3.5 mmol/L (3.5-5.1); SODIUM 140 mmol/L (136-145); TCO2 22 mmol/L (25-35)
[2019-01-10 08:52] LABS: BASO# 0.01 X1000 (0.0-0.2); BASO% 0.2 % (0.0-0.8); EOS# 0.07 X1000 (0.0-0.7); EOS% 1.2 % (0.0-10.0); HEMATOCRIT 32.4 % (42.0-52.0); HEMOGLOBIN 11.1 g/dL (14.0-18.0); IMM GRAN# 0.04 X1000 (0.0-0.04); IMM GRAN% 0.7 % (0.0-0.5); LYMPH# 0.52 X1000 (1.2-3.4); LYMPH% 8.9 % (20.5-51.1); MCH 31.4 PG (27-31); MCHC 34.3 g/dL (33-37); MCV 91.8 FL (81-99); MONO# 0.78 X1000 (0.11-0.59); MONO% 13.4 % (1.7-9.3); MPV 10.8 FL (7.4-10.4); NEUT% 75.6 % (42.2-75.2); PLT 50 X1000 (130-400); RBC 3.53 XMIL (4.7-6.1); RDW 11.4 % (11.5-14.5); WBC 5.82 X1000 (4.8-10.8)
[2019-01-10] MEDS: ALDACTONE PO SCH (09:44)
[2019-01-10] MEDS: SINEMET 25/100 PO SCH ×3 (09:44→17:11)
[2019-01-10] MEDS: FOLIC ACID PO SCH (09:44)
[2019-01-10] MEDS: NORCO-7.5 PO PRN (09:50)
--- NOTE | 2019-01-10 17:37 | PROGRESS NOTE ---
DATE: 01/10/2019 Came in with cough, fever, shortness of breath for 2 weeks. He is followed by Dr. Villalobos 63-year- old male with history of lymphoma, Parkinson disease. Presented to the emergency room 2-week history productive cough, fever, shortness of breath has been worsening, was admitted with left lower lobe pneumonia, underlying lymphoma. He says he is feeling better sitting up at the side of the bed, remains afebrile. Temperature 98.1 degrees this morning, pulse 80, respirations 19, blood pressure 107/52. Pupils are equal and round.Lungs: Clear in all lung hart. Cardiovascular: Regular rhythm and rate without murmur or S3. Abdomen: Soft. Skin: Warm and dry. Urine output 2600 mL. LAB: White count 5820, hematocrit 32, hemoglobin 11, platelet count 50,000, sodium 140, potassium 3.5, chloride 104, bicarb 22, BUN 9, creatinine 1.0. ASSESSMENT AND PLAN: 1. The patient had Haemophilus influenzae bacteremia almost certainly with pneumonia. Sputum grew gram-negative shayan which will undoubtedly be identified as Haemophilus influenzae. He has extremely low levels of immunoglobulin IgA less than 5, IgM less than 3, IgG is 158. He is receiving cefepime. Should continue. 2. Lymphoma. This is most likely reason he has low immunoglobulins across the board. Problem is going to be whether we can give him intravenous immunoglobulin so discussing with Dr. Aquino and Dr. Austin. We will check his records see if he has ever had IVIG. He is clinically doing better. Continue breathing treatments of albuterol, Tessalon Perles. 3. He has got Parkinson's. He is on carbidopa levodopa he takes 3 times a day that is a , he is on spironolactone 25 mg a day. cc: Bar Huang MD
--- NOTE | 2019-01-10 18:29 | INFECTIOUS DISEASE PROGRESS NO ---
DATE: 01/10/2019 SUBJECTIVE: The patient has a Haemophilus influenzae bacteremia. His sputum, however, is growing Pseudomonas putida. The patient also has extremely low immunoglobulin levels. MEDICATIONS: Today I switched the patient from Rocephin to cefepime to cover the Pseudomonas putida that was isolated in the sputum, as well as the Haemophilus influenzae that is in the patient's bloodstream. PHYSICAL EXAMINATION: Vital Signs: Temperature is 98.1 degrees, pulse 88, respirations 19, blood pressure 107/52. General: This is a fairly healthy-appearing, middle-aged male. He is in no acute distress. Head, eyes, ears, nose, and throat: He can hear my spoken words and see near objects. He does not have any white patches on his tongue. Thorax: The patient has a Port-A- Cath in place. The site is not swollen or red. Neck: No stiffness. Lungs: Clear to auscultation. Cardiovascular: Regular heart rate. Abdomen: Soft and nontender. Neurologic: Patient is awake. He can move his extremities. There is no tremor. The patient is able to ambulate without difficulty. LAB AND X-RAY: The patient's CBC shows a white count of 5,820, hemoglobin 11.1, and platelet count 50,000. Creatinine is 1. GFR is greater than 60. The patient's Legionella antigen and pneumococcal antigen are both negative. ASSESSMENT AND PLAN: The patient has a Pseudomonas pneumoniae and a Haemophilus bacteremia. Also the patient's immunoglobulin levels are incredibly low. My plan is to switch the patient to cefepime, which I did earlier. I talked to Dr. Aquino again and we both feel hesitant giving the patient IVIG in view of the fact that the IgA level is so low. For now, we are not going to give intravenous gammaglobulin. Dr. Aquino is going to call some of his colleagues at [facility] to see if there is some way we can give the patient immunoglobulin. If there is no way we can give it to build up the IgG level, then Dr. Aquino and I will send the patient home on DS 1 tablet daily. COMORBIDITIES: Include lymphoma and markedly low availability of immunoglobulin in the patient. The patient also has Crohn disease, Parkinson disease, and a history of renal calculi. cc: Rafael Aquino MD
[2019-01-10] MEDS: MEVACOR PO SCH (20:33)
[2019-01-11] MEDS: DUONEB (A & A) INH SCH ×6 (03:20→23:19)
--- NOTE | 2019-01-11 03:38 | HEMO/ONC PROGRESS NOTE ---
DATE: 01/10/2019 SUBJECTIVE: The patient reports that he is slowly getting better. He continues to have shortness of breath. PHYSICAL EXAMINATION: General: Temperature 98.1 degrees, pulse 88, blood pressure 107/52. HEENT: Eyes anicteric. Mucous membranes are moist. Cardiac Exam: Regular rate and rhythm. Normal S1, S2. Chest: Clear to auscultation. Abdomen: No masses. Extremities: No cyanosis, clubbing, or edema. LABORATORIES: White count 5.2, hemoglobin 11.1, platelets 50,000. MPV 10.8. BUN 9, creatinine 1.0. B12 and folate levels are normal. ASSESSMENT AND PLAN: 1. Follicular non-Hodgkin lymphoma: Last scans revealed good control of lymphoma. No recommendations from that standpoint. 2. Multilobar pneumonia with Haemophilus influenzae bacteremia: Continue antibiotics. 3. 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 He is at high risk for anaphylactic reactions with IVIG therapy. Hold off on IVIG therapy. Discussed with Dr. Aquino. 4. Thrombocytopenia: I suspect this is likely related to his recent infection. Transfuse if platelets less than 20,000. In the clinic, his platelet counts have been between 90,000 and 120,000. cc: Tito Aquino MD [facility]
[2019-01-11] MEDS: MAXIPIME 2 GM in NS 100 ML IV SCH ×3 (04:23→20:22)
[2019-01-11] MEDS: FOLIC ACID PO SCH (08:53)
[2019-01-11] MEDS: ALDACTONE PO SCH (08:53)
[2019-01-11] MEDS: SINEMET 25/100 PO SCH ×3 (08:53→18:31)
[2019-01-11] MEDS: MORPHINE IV PRN (08:54)
[2019-01-11] MEDS: ROBITUSSIN-AC PO PRN ×2 (09:05→15:41)
--- NOTE | 2019-01-11 14:16 | PROGRESS NOTE ---
DATE: 01/11/2019 SUBJECTIVE: He is still on nasal cannula. He feels a lot better. He is asking about going home. OBJECTIVE: Vital signs: He remains afebrile. Temperature 98.2 degrees, pulse 99, respirations 22, blood pressure 120/57. HEENT: Pupils are equal and round. Lungs: Clear in all lung hart. Cardiovascular: Regular rhythm and rate without murmur or S3. Abdomen: Soft. Skin: Warm and dry. ASSESSMENT AND PLAN: 1. Follicular non-Hodgkin's lymphoma. CT scans reveal good control of lymphoma. 2. Multilobar pneumonia, Haemophilus influenzae bacteremia. Continue antibiotics. 3. Hypogammaglobulinemia. High risk for anaphylactic reactions to IVIG therapy , so hold off on that per Dr. Aquino. 4. Thrombocytopenia. He feels better clinically. Platelet count is 50,000. I will see if we can wean him off the O2 and discuss with Dr. Aquino when he can go home. Right now he is on cefepime 2 g IV q.8. cc: Bar Huagn MD [facility]
[2019-01-11] MEDS: NORCO-7.5 PO PRN (15:41)
--- NOTE | 2019-01-11 16:29 | INFECTIOUS DISEASE PROGRESS NO ---
DATE: 01/11/2019 PRESENT ILLNESS: Mr. Martini has Haemophilus influenzae bacteremia and a Pseudomonas pneumonia. He also has very low immunoglobulin levels. MEDICATIONS: Based on his sterile blood cultures, he is on day 2 of treatment using cefepime 2 g IV every 8 hours. PHYSICAL EXAMINATION: Vital Signs: Temperature is 98.2 degrees, pulse rate 99 , respiratory rate 22, blood pressure 120/57. O2 saturation is 95% on 2 L nasal cannula. General : This is a chronically ill-appearing, middle-aged gentleman. He is lying in the bed currently in no acute distress. HEENT: Atraumatic, normocephalic. Oral mucous membranes are pink and moist. Conjunctivae are pink. Neck: Supple. Trachea is midline. Cardiovascular: Heart rate and rhythm are regular. Normal sinus rhythm on the monitor. Respiratory: Lung sounds are clear in the upper lobes, somewhat diminished in the bases. Abdomen: Protuberant, but soft and nontender. Bowel sounds are active. Neurologic: He is awake, alert and somewhat forgetful. He is able to move all his extremities in the bed. There is a mild tremor noted to his left upper extremity at times. LABORATORY AND X-RAY: Today his white count is 5.82, hemoglobin 11.1, platelet count 50,000. Creatinine is 1. Estimated GFR is greater than 60. His sputum has grown a Pseudomonas putida, and his previous blood cultures grew Haemophilus influenza. The most recent blood cultures are sterile. No imaging reports today. ASSESSMENT AND PLAN: Mr. Martini has a Pseudomonas pneumonia and Haemophilus bacteremia. Unfortunately, he does have some screws in his left hand, as well as a Port-A- Cath, which will require 6 weeks of treatment for the bacteremia. Day 1 is the first day of sterile blood cultures. At this point, we will continue the cefepime as ordered and consider switching him to oral Levaquin if appropriate when he is discharged. His IgG and IgA levels are extremely low. Dr. Aquino is following his immunoglobulin deficiencies at this time. These plans have been discussed with and recommended by Dr. Aquino. COMORBIDITIES: Comorbidities for Mr. Martini include Parkinson disease, follicular non-Hodgkin's lymphoma and thrombocytopenia. Dictated by MICHAEL Sousa for Rafael Aquino MD This chart was documented by, MICHAEL Sousa and accurately reflects the services performed, treatment plan and medical decisions as attested by the providers signature Rafael Aquino MD. cc: Rafael Aquino MD [facility]
[2019-01-11] MEDS: MEVACOR PO SCH (20:23)
[2019-01-11] MEDS ORDERED: BENADRYL PO ONE (20:37)
[2019-01-11] MEDS ORDERED: TYLENOL PO ONE (20:38)
[2019-01-11] MEDS ORDERED: GAMUNEX-C 10% IV ONE (21:00)
--- NOTE | 2019-01-12 01:56 | HEMO/ONC PROGRESS NOTE ---
DATE: 01/11/2019 SUBJECTIVE: The patient reports that he continues to feel tired and fatigued. He reports that he is not improving as quickly as he would like. He is on nasal cannula O2. He is not looking uncomfortable lying in bed at this time. OBJECTIVE: Vital signs: Temperature 98.4 degrees, pulse 96, blood pressure 128 /64. HEENT: Eyes: EOMI. PERRLA. Anicteric. Mucous membranes are moist. Cardiac: Regular rate and rhythm. Normal S1 and S2. Chest: Clear to auscultation. Abdomen: Soft and nontender without hepatosplenomegaly or masses. Extremities: No cyanosis, clubbing or edema. LABORATORY DATA: None today. His IgG was 158, IgM less than 3, IgA less than 5. ASSESSMENT AND PLAN: 1. Follicular non-Hodgkin's lymphoma: Last scans without evidence of disease. Continue to monitor from that standpoint. 2. Multilobar pneumonia with Hemophilus and Pseudomonas infection: The patient continues on antibiotics. 3. Hypogammaglobulinemia: I discussed with my friend at [facility]. They believe IgG and IgA low levels are simply from chemotherapy. They advised me that the risk of reaction to intravenous immunoglobulin is minimal and to proceed with this. We will make arrangements to give him intravenous immunoglobulin 400 mg/kg today. 4. Thrombocytopenia: Most likely related to his recent infection. Baseline platelet count is between 90,000-120,000. Continue to simply monitor at this time. cc: Tito Aquino MD MTDD
[2019-01-12] MEDS: DUONEB (A & A) INH SCH ×4 (03:36→16:04)
[2019-01-12] MEDS: MAXIPIME 2 GM in NS 100 ML IV SCH ×3 (04:11→18:06)
[2019-01-12] MEDS: NORCO-7.5 PO PRN ×4 (07:40→18:42)
[2019-01-12] MEDS: ROBITUSSIN-AC PO PRN (08:30)
[2019-01-12] MEDS: SINEMET 25/100 PO SCH ×3 (08:31→16:13)
[2019-01-12] MEDS: FOLIC ACID PO SCH (08:31)
[2019-01-12] MEDS: ALDACTONE PO SCH (08:31)
[2019-01-12] MEDS: MORPHINE IV PRN ×2 (08:31→14:35)
[2019-01-12 09:51] LABS: BASO# 0.01 X1000 (0.0-0.2); BASO% 0.2 % (0.0-0.8); EOS# 0.12 X1000 (0.0-0.7); EOS% 2.2 % (0.0-10.0); HEMATOCRIT 31.7 % (42.0-52.0); HEMOGLOBIN 10.6 g/dL (14.0-18.0); IMM GRAN# 0.05 X1000 (0.0-0.04); IMM GRAN% 0.9 % (0.0-0.5); LYMPH# 0.51 X1000 (1.2-3.4); LYMPH% 9.4 % (20.5-51.1); MCH 31.1 PG (27-31); MCHC 33.4 g/dL (33-37); MONO% 5.6 % (1.7-9.3); MPV 10.6 FL (7.4-10.4); NEUT# 4.41 X1000 (1.4-6.5); NEUT% 81.7 % (42.2-75.2); PLT 70 X1000 (130-400); RBC 3.41 XMIL (4.7-6.1); RDW 11.7 % (11.5-14.5)
--- NOTE | 2019-01-12 10:55 | HEMO/ONC PROGRESS NOTE ---
DATE: 01/12/2019 SUBJECTIVE: The patient continues to be complaining of being very fatigued. He continues to have generalized pain but no other complaints. OBJECTIVE: Vital Signs: Temperature of 98.7 degrees, heart rate 76, respiratory rate 14, blood pressure is 133/70, saturating 95% on nasal cannula. General: The patient is awake, lying in bed. No acute distress noted. HEENT: Anicteric. Pupils PERRLA. Mucous membranes appear to be moist. Cardiovascular: Regular rate and rhythm. Normal S1, S2. Chest: Breath sounds are clear to auscultation. Abdomen: Soft, nontender. Bowel sounds present in all 4 quadrants. Neurological: Alert and oriented x3. No focal deficits noted. Laboratory Data: No labs this morning. ASSESSMENT AND PLAN: 1. Follicular non-Hodgkin's lymphoma: The patient continues to have disease. Continue to just monitor at this time. 2. Multilobar pneumonia with bacteremia and pseudomonas infection: Continue on antibiotics as ordered. Continue recommendations by primary medical team and infectious disease. 3. Hypogammaglobulinemia: The patient received IVIG yesterday. We will continue to monitor closely. 4. Thrombocytopenia: Most likely caused by his recent infection. Platelet counts continue to be stable. Continue to monitor and transfuse for any signs of bleeding or for platelets less than 20,000. 5. Supportive care: Continue to have the patient get out of bed as much possible. Continue to have the patient do exercises as instructed. Dictated by MICHAEL Gillespie for Tito Aquino MD Patient seen and examined. He tolerated IVIG very well. No reactions. He has significantly improved overnight since giving him IVIG. He wants to go home. I think he is strong enough to go home. He will require home health care. Antibiotics per Dr. Aquino. Follow-up in the clinic for his next dose of IVIG in 4 weeks. Tito Aquino M.D. cc: MICHAEL Gillespie MD [facility]
--- NOTE | 2019-01-12 14:22 | PROGRESS NOTE ---
DATE: 01/12/2019 SUBJECTIVE: Mr. Martini is lying down. His was eating lunch at bedside, and he is feeling better and breathing better. OBJECTIVE: Vital Signs: Temperature 97.2 degrees, pulse 86, respirations 22, and blood pressure 168/82. Lungs: Clear in all lung hart. Cardiovascular: Regular rhythm and rate without murmur or S3. Abdomen: Soft. Skin: Warm and dry. LABORATORY: White count 5400, hematocrit 31, and platelet count 70,000. ASSESSMENT AND PLAN: 1. Follicular non-Hodgkin's lymphoma. The patient continues to have disease and continue to just monitor at this time. 2. Multilobar pneumonia bacteremia. Pseudomonas infection with underlying hypo gamma globulinemia so continue present antibiotics. 3. Hypogammaglobulinemia going to monitor closely. 4. Thrombocytopenia. Aware. Stable. 5. Encourage some exercise and trying to get out of bed. We will discuss with team about when we are ready for discharge. Repeat another chest x-ray in the morning. I do not see any change in orders at this time. cc: Bar Huang MD
--- NOTE | 2019-01-12 14:36 | DISCHARGE SUMMARY ---
ADMISSION DATE: 01/06/2019 DISCHARGE DATE: 01/12/2019 Patient was admitted on 01/06/2019. This is a 63-year-old male, who is a patient of Dr. Villalobos. He has a history of follicular lymphoma and Parkinson disease, presented to the emergency room with cough, fever, shortness of breath for a couple weeks. He is having a productive cough, seemed to be worsening, so admitted with a left lower lobe pneumonia and ended up having multi lobar pneumonia. 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 Dr. Aquino and Dr. Aquino were following along, Dr. Aquino for the follicular non-Hodgkin's lymphoma. Lymphoma has been controlled and will continue to monitor, and then following the multilobar pneumonia, felt the patient was tested and had immunoglobulin deficiency, and so there was some debate on whether to give immunoglobulin, but we did give him IVIG and seemed to do well. Monitor closely. He was feeling better. [place] he could go home on 01/12/2019, and we will discharge him on Tessalon Perles 100 mg t.i.d. p.r.n., his Sinemet 25/100 one p.o. t.i.d., folic acid 1 mg a day. He can take Robitussin as needed for cough, and Mevacor 20 mg at bedtime, and Aldactone 25 mg a day. He can continue taking his lovastatin 20 mg at bedtime and Senna Plus tablets, and the cetirizine antihistamine, he can take as needed. He will follow up with His Dr. Aquino. cc: Bar Huang MD
--- NOTE | 2019-01-12 14:43 | INFECTIOUS DISEASE PROGRESS NO ---
DATE: 01/12/2019 SUBJECTIVE: The patient has a Haemophilus influenzae bacteremia and a Pseudomonas pneumonia. He has also extremely low immunoglobulin levels. MEDICATIONS: The patient is on cefepime 2 grams IV every 8 hours. The patient had negative blood cultures on January 09. Therefore, the patient's antibiotic days of treatment are day 3 because day 1 is the first day that the blood cultures are sterile. OBJECTIVE: Vital Signs: Temperature is 97.2 degrees, pulse 86, respirations 22 , blood pressure 168/82. General: This is a somewhat ill-appearing, middle-aged male. He is in no acute distress. Head, eyes, ears, nose, and throat: He can hear my spoken words and see near objects. He does not have any white coating on his tongue. Neck: No meningismus. Thorax: The patient has a Port-A-Cath in place. The Port-A-Cath site is not swollen or draining. Cardiovascular: Heart rate is regular. Lungs: Clear to auscultation. Abdomen : Soft and nontender. Neurologic: Patient is alert. He can move his extremities. There is no tremor. LAB AND X-RAY: There is no new radiographic study. First time that the blood cultures were sterile was on January 09. CBC shows a white count of 5400, hemoglobin 10.6, and platelet count 70,000. The patient's last creatinine was yesterday, and it was 1.0, and the GFR was greater than 60. Patient's last x-ray showed infiltrates in the left lung base. ASSESSMENT AND PLAN: The patient has Pseudomonas pneumoniae and a Haemophilus bacteremia. It is possible that the Haemophilus bacteremia came from his Port-A-Cath, although that I think that would be an unlikely pathogen in that setting. In any event, my plan is to treat the patient with cefepime, which will cover the Pseudomonas and the Haemophilus and I am going to treat the patient for 2 weeks, and then he will be seen in my office. The plan will be to also repeat the patient's chest x-ray hopefully, to make sure the infiltrate has cleared. Also, after stopping the antibiotics, I want to wait a couple days and repeat the patient's blood cultures just to make sure that they are sterile off antibiotics. Dr. Aquino had conferred with his oncology colleagues, and it was felt that the patient could get IVIG, even though the levels were extremely low, especially in fact that they were nonexistent for IgA and IgM. The IgG was approximately 169. Dr. Aquino will be taking over treatment of the patient's immunoglobulin deficiency. The patient received IVIG last night and he tolerated it well. I plan to have the patient seen at my office in 2 weeks. COMORBIDITIES: He has a lymphoma and extremely low levels of immunoglobulin. The patient also has Crohn disease, Parkinson disease, and a history of renal calculi. cc: Rafael Aquino MD MTDD
--- NOTE | 2019-01-12 16:58 | PROGRESS NOTE ---
DATE: 01/12/2019 ADDENDUM: Note, he has follicular lymphoma with involvement in his lungs. He has had Haemophilus influenzae bacteremia and pneumonia. 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 IgA is less than 5, IgM is less than 3, IgG is 158. He has hypoxemia. His pneumonia has been treated but he still has significant hypoxemia. I suspect he has some underlying COPD as well but oxygen requirement, he will need 2 L of nasal cannula. His chest x-ray on 01/09 still has some densities in the base and some atelectasis, as well as effusion. DIAGNOSES: 1. Follicular non-Hodgkin's lymphoma. 2. Multilobar pneumonia. 3. Hypogammaglobulinemia. 4. Underlying chronic obstructive pulmonary disease with chronic hypoxemia. cc: Bar Huang MD
[2019-01-12 17:21] VITALS: BP 137/65
--- NOTE | 2019-01-12 18:42 | INFECTIOUS DISEASE PROGRESS NO ---
DATE: 01/12/2019 ADDENDUM: The patient has some metal in his fingers. Because of this, the plan is to treat the patient with cefepime for [address] him on p.o. Levaquin for 4 weeks, to complete a 6- week treatment course. cc: Rafael Aquino MD
== END 2019-01-12 19:13 | disposition home health service (06) | DRG 871 ==
LOC: ED 18:56 → SUATTDRO 23:19 → 3N 23:19
PROVIDERS: ATTEND Emergency Medicine
CPT/HCPCS: 71020; 71046; 74177; 80048; 80053; 80069; 81001; 82550; 82607; 82728; 82746; 82784; 83540; 83550; 83605; 83880; 84134; 84484; 85025; 85384; 85610; 85730; 87040; 87070; 87077; 87184; 87186; 87205; 87275; 87276; 87449; 87804; 87899; 93005; 94640; 94761; 96361; 96365; 96367; 96375; 99285; 99291; A9270; J0692; J1561; J2270; J3010; J3370; J7030; J7050; Q9967

== ENCOUNTER 2019-03-01 10:03 | Inpatient (IN) ==
[2019-03-01] MEDS ORDERED: DUONEB (A & A) INH ONE (10:48)
--- NOTE | 2019-03-01 11:02 | Diag Imaging Result Doc PS360 ---
EXAM: CHEST-1 VIEW HISTORY: sob TECHNIQUE: Chest single view COMPARISON: 02/23/2019 FINDINGS: The lungs are well expanded. The heart is not enlarged. No change in the left-sided portacatheter. No pneumothorax. The vessels are not distended. There are no infiltrates. No effusion identified. No lung nodules identified. Large bulla in the upper right lung. IMPRESSION: Stable chest. Electronically signed by Anthony Kaiser 03/01/2019 10:59 AM
[2019-03-01 11:12] LABS: BASO# 0.01 X1000 (0.0-0.2); BASO% 0.2 % (0.0-0.8); EOS# 0.07 X1000 (0.0-0.7); EOS% 1.6 % (0.0-10.0); HEMATOCRIT 37.8 % (42.0-52.0); HEMOGLOBIN 13.4 g/dL (14.0-18.0); LYMPH% 24.9 % (20.5-51.1); MCH 31.3 PG (27-31); MCHC 35.4 g/dL (33-37); MCV 88.3 FL (81-99); MONO# 0.26 X1000 (0.11-0.59); MONO% 5.9 % (1.7-9.3); MPV 10.4 FL (7.4-10.4); NEUT# 2.97 X1000 (1.4-6.5); NEUT% 67.4 % (42.2-75.2); PLT 79 X1000 (130-400); RBC 4.28 XMIL (4.7-6.1); RDW 10.8 % (11.5-14.5); WBC 4.41 X1000 (4.8-10.8)
[2019-03-01 11:20] LABS: INR 0.97; PROTIME 13.7 Seconds (11.0-16.0)
[2019-03-01 11:30] LABS: PTT 126.2 Seconds (22.3-41.8)
[2019-03-01 11:41] LABS: ALLEN TEST YES; BE 0.8 mmoll (-3.0-3.0); BLOOD TYPE ARTERIAL; HCO3-(ACT) 25.4 mmoll (20.0-26.0); METHB 0.9 % (0.0-1.5); O2(CT) 17.1 mL/dL (15.0-23.0); O2HB 90.8 % (95.0-99.0); PCO2(98.6) 39 mmHg (35-45); PO2(98.6) 60 mmHg (60-100); SAMPLE BLOOD; SAO2 93.8 % (95.0-100.0); THB 13.4 g/dL (11.5-17.4); pH(98.6) 7.42 (7.35-7.45)
[2019-03-01 11:41] LABS: AGAP 11; ALBUMIN 4.5 g/dL (3.5-5.0); ALKALINE PHOSPHATASE 109 U/L (32-122); BUN 18 mg/dL (8-22); CALCIUM 9.2 mg/dL (8.8-10.2); CHLORIDE 104 mmol/L (98-107); COSMO 283; CREATININE 1.1 mg/dL (0.7-1.2); ESTIMATED GFR > 60; GLUCOSE 89 mg/dL (70-104); GOT 25 U/L (10-34); GPT < 5 U/L (10-44); POTASSIUM 4.1 mmol/L (3.5-5.1); SODIUM 141 mmol/L (136-145); TCO2 26 mmol/L (25-35); TOTAL BILIRUBIN 0.33 mg/dL (0.20-1.00); TOTAL PROTEIN 6.7 g/dL (6.3-8.3)
[2019-03-01 11:44] LABS: MODALITY ROOM AIR
[2019-03-01 12:56] LABS: URINE SOURCE CLEAN CATCH
[2019-03-01 13:01] LABS: BILIRUBIN URINE NEGATIVE (NEGATIVE); BLOOD URINE NEGATIVE (NEGATIVE); COLOR YELLOW; GLUCOSE URINE NEGATIVE (NEGATIVE); KETONE URINE NEGATIVE (NEGATIVE); LEUKOCYTES URINE NEGATIVE (NEGATIVE); NITRITE URINE NEGATIVE (NEGATIVE); PROTEIN URINE NEGATIVE (NEGATIVE); TURBIDITY URINE CLEAR (CLEAR); UROBILINOGEN URINE NORMAL (NORMAL)
[2019-03-01 13:02] LABS: UR EPITHELIAL CELLS <10 /HPF (<10); URINE BACTERIA NEGATIVE /HPF; URINE RBC <10 /HPF (<10); URINE WBC <10 /HPF (<10)
--- NOTE | 2019-03-01 15:10 | EKG Report ---
Test Performed on : 03/01/2019 1:51:15 PM Test Reason : sob Blood Pressure : / mmHG Vent. Rate : 088 BPM Atrial Rate : 088 BPM P-R Int : 146 ms QRS Dur : 082 ms QT Int : 386 ms P-R-T Axes : 058 -38 053 degrees QTc Int : 467 ms Normal sinus rhythm. Left axis deviation Possible Anterior infarct , age undetermined Abnormal ECG When compared with ECG of 06-JAN-2019 23:13, (Unconfirmed) No significant change was found Unconfirmed Result
--- NOTE | 2019-03-01 16:17 | PROVIDER DOCUMENTATION ---
This chart was entered by Mague Parikh Scribe, acting as scribe for Graeme Cedillo MD. HPI-Respiratory General - General Chief Complaint: Shortness of Breath Stated Complaint: pneumonia Time Seen by Provider: 03/01/19 10:27 Source: patient, family Allergies/Adverse Reactions: Patient Allergies Allergy/AdvReac Type Severity Reaction Status Date / Time No Known Allergies Allergy Verified 03/01/19 10:50 Home Medications: Home Medication List Medication Instructions Recorded Confirmed Last Taken Type Carbidopa/Levodopa [Carbidopa-Levo 1 tab PO TID 04/24/18 03/01/19 04/23/18 History 25-100 Tab] Cetirizine HCl 10 mg PO QHS 04/24/18 03/01/19 04/23/18 History Lovastatin 20 mg PO QHS 04/24/18 03/01/19 04/23/18 History Sennosides/Docusate Sodium [Senna 1 each PO DAILY 04/24/18 03/01/19 04/23/18 History Plus Tablet] Folic Acid 1 mg PO DAILY 01/06/19 03/01/19 Unknown History Amoxicillin 500 mg PO Q8H 03/01/19 03/01/19 02/28/19 History Latanoprost/Pf [Latanoprost 0.005% 1 drp OPHTHALMIC (EYE) QHS 03/01/19 03/01/19 Unknown History Eye Drop] Levofloxacin [Levaquin] 500 mg PO DAILY 03/01/19 03/01/19 02/28/19 History Megestrol Acetate 20 mg PO DAILY 03/01/19 03/01/19 Unknown History - History of Present Illness-Resp Nature of Presenting Problem: 63 yobm presents to the ed with c/o sob worsening last 3 days. pt is speaking in 3 word sentences and sts is on iv abx for pneumonia Quality of Pain: reports: fullness Severity in ED: reports: moderate Onset/Duration: reports: 3 days ago Timing: reports: still present, getting worse Context: reports: recent URI Episode Frequency: chronic episodes Current Respiratory Medication Therapy: Initiated see nurses note Modifying Factors: improves with: antibiotics, oxygen, sitting upright. worse with: exertion, lying down Associated Symptoms: reports: cough, hyperventilating, shortness of breath Similar Symptoms Previously?: Yes Recently seen or treated by another doctor?: Yes (has seen pcp) Review of Systems - Adult - REVIEW OF SYSTEMS - ADULT Constitutional: reports: see HPI, fatique Eyes: reports: no symptoms reported Ears, Nose, Mouth & Throat: reports: no symptoms reported Cardiovascular: denies: chest pain, palpitations Respiratory: reports: see HPI, chronic cough, dyspnea on exertion, shortness of breath, wheezing Gastrointestinal: denies: abdominal pain, diarrhea, nausea, vomiting Genitourinary: reports: no symptoms reported Musculoskeletal: denies: back pain, neck pain Integumentary: reports: no symptoms reported Neurological: reports: no symptoms reported Psychiatric: reports: no symptoms reported Endocrine: reports: no symptoms reported Hematologic/Lymphatic: reports: no symptoms reported Allergic/Immunologic: reports: no symptoms reported All Other Systems: Reviewed and Negative Past History - Adult - PAST MEDICAL HISTORY-ADULT Review of Records: reports: Old Records Reviewed, Nursing Assessment Review, Medications Reviewed, Social history reviewed & non-contributory. Major Childhood Illnesses: reports: denies history Cardiovascular: reports: denies history Respiratory: reports: denies history Gastrointestinal: reports: Crohn's, GERD, ulcer Genitourinary: reports: denies history Musculoskeletal: reports: denies history Hand Dominance: Right Handed Neurological: reports: Parkinson's Psychiatric: reports: denies history Endocrine/Immune: reports: denies history Other Conditions: reports: other cancer - PRIOR SURGERIES/PROCEDURES Surgical/Procedure History: reports: reviewed, not pertinent - IMMUNIZATION STATUS Childhood Immunizations: See Nurse Assessment Flu Vaccine: See Nurse Assessment - FAMILY HISTORY Family History: reviewed, not pertinent - SOCIAL HISTORY Smoking: denies Substance Use: denies Living Situation: family Physical Exam-General - PHYSICAL EXAM-ADULT Initial Vital Signs Reviewed: Yes - CONSTITUTIONAL General Appearance: alert, moderate distress, thin - EYES Eyes: PERRL/EOMI - HEAD, EARS, NOSE, MOUTH & THROAT HENMT: normal ENT inspection - NECK Neck: full range of motion, normal inspection - RESPIRATORY Respiratory: decreased breath sounds, accessory muscle use, wheezing, increased rate (24), other (02 sat 85%) - CARDIOVASCULAR Cardiovascular: normal peripheral pulses, regular rate, rhythm - GASTROINTESTINAL (ABDOMEN) Abdominal Exam: normal bowel sounds, non tender, soft - LYMPHATIC Lymphatic: no adenopathy - MUSCULOSKELETAL Back Exam: normal inspection, no CVA tenderness, no vertebral tenderness Extremity: normal range of motion, normal inspection, no pedal edema, no calf tenderness - SKIN Integumentary: normal color, normal turgor, warm/dry - NEUROLOGIC Neurologic: grossly normal, no motor/sensory deficits - PSYCHIATRIC Psych/Mental Status: normal mood/affect, normal thought content, normal thought process, oriented x 3 Progress - PLAN OF CARE/RESULTS Progress/Plan/Lab Results: Vital Signs - 8 hr 03/01/19 10:04 03/01/19 10:17 03/01/19 11:02 Temperature 98.4 F Pulse Rate 92 H Respiratory Rate 20 Blood Pressure 140/88 163/108 164/98 O2 Sat by Pulse Oximetry 85 L 92 L 95 03/01/19 11:42 03/01/19 12:03 03/01/19 12:30 Temperature Pulse Rate 80 Respiratory Rate 18 Blood Pressure 158/96 O2 Sat by Pulse Oximetry 95 89 L 94 L 03/01/19 13:03 Temperature Pulse Rate Respiratory Rate Blood Pressure 126/105 O2 Sat by Pulse Oximetry 93 L Laboratory Results - last 24 hr 03/01/19 03/01/19 03/01/19 10:38 10:38 10:38 WBC 4.41 L RBC 4.28 L Hgb 13.4 L Hct 37.8 L MCV 88.3 MCH 31.3 H MCHC 35.4 RDW Std Deviation 10.8 L Plt Count 79 L MPV 10.4 Immature Gran % (Auto) 0.0 Neut % (Auto) 67.4 Lymph % (Auto) 24.9 [place] % (Auto) 5.9 Eos % (Auto) 1.6 Baso % (Auto) 0.2 Immature Gran # (Auto) 0.00 Neut # (Auto) 2.97 Lymph # (Auto) 1.10 L [place] # (Auto) 0.26 Eos # (Auto) 0.07 Baso # (Auto) 0.01 PT INR PTT (Actin FS) D-Dimer, Quantitative Specimen Type Sample Site pH pCO2 pO2 HCO3 Base Excess Oxyhemoglobin ABG O2 Sat (Calculated) ABG O2 Saturation ABG Carboxyhemoglobin ABG Methemoglobin Bar Test A-a O2 Difference Total Hemoglobin Lactate Blood Gas Modality FiO2 % Sodium 141 Potassium 4.1 Chloride 104 Carbon Dioxide 26 Anion Gap 11 BUN 18 Creatinine 1.1 Estimated GFR/1.73 m2 > 60 BUN/Creatinine Ratio 16 Glucose 89 Calculated Osmolality 283 Calcium 9.2 Magnesium Total Bilirubin 0.33 AST 25 ALT < 5 L Alkaline Phosphatase 109 Creatine Kinase Troponin T Quj-L-Mzxiwzgcozm Pept Total Protein 6.7 Albumin 4.5 Globulin 2.2 Albumin/Globulin Ratio 2.0 Plasma Lactate 0.6 Urine Source Urine Color Urine Turbidity Urine pH Ur Specific Bennett Urine Protein Ur Glucose (Stick) Ur Ketones (Stick) Urine Blood Urine Nitrite Urine Bilirubin Urobilinogen Dipstick Urine Leukocytes Urine WBC (Auto) Urine RBC (Auto) U Epithel Cells (Auto) Urine Bacteria (Auto) 03/01/19 03/01/19 03/01/19 10:38 10:38 10:38 WBC RBC Hgb Hct MCV MCH MCHC RDW Std Deviation Plt Count MPV Immature Gran % (Auto) Neut % (Auto) Lymph % (Auto) [place] % (Auto) Eos % (Auto) Baso % (Auto) Immature Gran # (Auto) Neut # (Auto) Lymph # (Auto) [place] # (Auto) Eos # (Auto) Baso # (Auto) PT INR PTT (Actin FS) D-Dimer, Quantitative Specimen Type Sample Site pH pCO2 pO2 HCO3 Base Excess Oxyhemoglobin ABG O2 Sat (Calculated) ABG O2 Saturation ABG Carboxyhemoglobin ABG Methemoglobin Bar Test A-a O2 Difference Total Hemoglobin Lactate Blood Gas Modality FiO2 % Sodium Potassium Chloride Carbon Dioxide Anion Gap BUN Creatinine Estimated GFR/1.73 m2 BUN/Creatinine Ratio Glucose Calculated Osmolality Calcium Magnesium 2.0 Total Bilirubin AST ALT Alkaline Phosphatase Creatine Kinase 61 Troponin T < 0.010 Fxl-V-Nnqiysoubrc Pept Total Protein Albumin Globulin Albumin/Globulin Ratio Plasma Lactate Urine Source Urine Color Urine Turbidity Urine pH Ur Specific Bennett Urine Protein Ur Glucose (Stick) Ur Ketones (Stick) Urine Blood Urine Nitrite Urine Bilirubin Urobilinogen Dipstick Urine Leukocytes Urine WBC (Auto) Urine RBC (Auto) U Epithel Cells (Auto) Urine Bacteria (Auto) 03/01/19 03/01/19 03/01/19 10:38 10:38 10:38 WBC RBC Hgb Hct MCV MCH MCHC RDW Std Deviation Plt Count MPV Immature Gran % (Auto) Neut % (Auto) Lymph % (Auto) [place] % (Auto) Eos % (Auto) Baso % (Auto) Immature Gran # (Auto) Neut # (Auto) Lymph # (Auto) [place] # (Auto) Eos # (Auto) Baso # (Auto) PT 13.7 INR 0.97 PTT (Actin FS) 126.2 H D-Dimer, Quantitative 0.33 Specimen Type Sample Site pH pCO2 pO2 HCO3 Base Excess Oxyhemoglobin ABG O2 Sat (Calculated) ABG O2 Saturation ABG Carboxyhemoglobin ABG Methemoglobin Bar Test A-a O2 Difference Total Hemoglobin Lactate Blood Gas Modality FiO2 % Sodium Potassium Chloride Carbon Dioxide Anion Gap BUN Creatinine Estimated GFR/1.73 m2 BUN/Creatinine Ratio Glucose Calculated Osmolality Calcium Magnesium Total Bilirubin AST ALT Alkaline Phosphatase Creatine Kinase Troponin T Wrf-D-Rojopmjtcvt Pept 54 Total Protein Albumin Globulin Albumin/Globulin Ratio Plasma Lactate Urine Source Urine Color Urine Turbidity Urine pH Ur Specific Bennett Urine Protein Ur Glucose (Stick) Ur Ketones (Stick) Urine Blood Urine Nitrite Urine Bilirubin Urobilinogen Dipstick Urine Leukocytes Urine WBC (Auto) Urine RBC (Auto) U Epithel Cells (Auto) Urine Bacteria (Auto) 03/01/19 03/01/19 11:34 12:51 WBC RBC Hgb Hct MCV MCH MCHC RDW Std Deviation Plt Count MPV Immature Gran % (Auto) Neut % (Auto) Lymph % (Auto) [place] % (Auto) Eos % (Auto) Baso % (Auto) Immature Gran # (Auto) Neut # (Auto) Lymph # (Auto) [place] # (Auto) Eos # (Auto) Baso # (Auto) PT INR PTT (Actin FS) D-Dimer, Quantitative Specimen Type ARTERIAL Sample Site L RADIAL pH 7.42 pCO2 39 pO2 60 HCO3 25.4 Base Excess 0.8 Oxyhemoglobin 90.8 L ABG O2 Sat (Calculated) 17.1 ABG O2 Saturation 93.8 L ABG Carboxyhemoglobin 2.30 ABG Methemoglobin 0.9 Bar Test YES A-a O2 Difference 41.0 Total Hemoglobin 13.4 Lactate 0.50 Blood Gas Modality ROOM AIR FiO2 % 21.0 Sodium Potassium Chloride Carbon Dioxide Anion Gap BUN Creatinine Estimated GFR/1.73 m2 BUN/Creatinine Ratio Glucose Calculated Osmolality Calcium Magnesium Total Bilirubin AST ALT Alkaline Phosphatase Creatine Kinase Troponin T Vcj-A-Snzoztwdnea Pept Total Protein Albumin Globulin Albumin/Globulin Ratio Plasma Lactate Urine Source CLEAN CATCH Urine Color YELLOW Urine Turbidity CLEAR Urine pH 7.0 Ur Specific Bennett 1.020 Urine Protein NEGATIVE Ur Glucose (Stick) NEGATIVE Ur Ketones (Stick) NEGATIVE Urine Blood NEGATIVE Urine Nitrite NEGATIVE Urine Bilirubin NEGATIVE Urobilinogen Dipstick NORMAL Urine Leukocytes NEGATIVE Urine WBC (Auto) <10 Urine RBC (Auto) <10 U Epithel Cells (Auto) <10 Urine Bacteria (Auto) NEGATIVE Orders Category Date Time Status Notify MD of + Sepsis Screen NOW Care 03/01/19 10:55 Active Notify Physician As Ordered Care 03/01/19 10:55 Active CHEST-1 VIEW [RAD] Stat Exams 03/01/19 10:46 Completed ABG [RESP] Routine Lab 03/01/19 11:34 Completed BLOOD CULTURE [BLDCUL] Stat Lab 03/01/19 10:38 Results CBC WITH ELECTRONIC DIFF [HEME] Stat Lab 03/01/19 10:38 Completed CK PROFILE [SP CHEM] Stat Lab 03/01/19 10:38 Completed COMPREHENSIVE METABOLIC PANEL [CHEM] Stat Lab 03/01/19 10:38 Completed D-DIMER [COAG] Stat Lab 03/01/19 10:38 Completed LACTATE, PLASMA [CHEM] Stat Lab 03/01/19 10:38 Completed MAGNESIUM [CHEM] Stat Lab 03/01/19 10:38 Completed PRO B-NATRIURETIC PEPTIDE Stat Lab 03/01/19 10:38 Completed PROTIME WITH INR [COAG] Stat Lab 03/01/19 10:38 Completed PTT [COAG] Stat Lab 03/01/19 10:38 Completed TROPONIN T Stat Lab 03/01/19 10:38 Completed URINALYSIS [URINALYSIS] Stat Lab 03/01/19 12:51 Completed Albuterol 2.5MG/Ipratrop 0.5MG [Duoneb (A & A)] Med 03/01/19 10:48 Discontinued 3 ml INH NOW ONE Aerosol Treatments Routine Oth 03/01/19 10:48 Completed Aerosol Treatments Stat Oth 03/01/19 10:48 Completed EKG [EKG] Stat Ther 03/01/19 10:46 Draft Result Diagrams: 03/01/19 10:38 03/01/19 10:38 - REASSESSMENT Reassessment #1 Time Reassessed: 11:11 (pt is in bed resting) Status: unchanged Reassessment Comment: dr teague bedside Reassessment #2 Time Reassessed: 03:05 Status: unchanged Reassessment #3 Time Reassessed: 15:55 Status: unchanged - EKG 1 Time of EKG reading by physician:: 13:51 EKG Read and Signed by:: Graeme Cedillo EKG Interpretation (*Must complete 3 of following elements*): Abnormal Rate: 88 Rhythm: nsr [place]: left (deviation) QRS: normal DE Interval: normal ST Wave: normal Comments: possible anterior infarct, age undetermined - XRAY 1 XRAY: Bilateral XRAY Study: Chest Impression: See EMR Report (EXAM: CHEST-1 VIEW HISTORY: sob TECHNIQUE: Chest single view COMPARISON: 02/23/2019 FINDINGS: The lungs are well expanded. The heart is not enlarged. No change in the left-sided portacatheter. No pneumothorax. The vessels are not distended. There are no infiltrates. No effusion identified. No lung nodules identified. Large bulla in the upper right lung. IMPRESSION: Stable chest. Electronically signed by Anthony Kaiser 03/01/2019 10:59 AM 03/01/19 1059 Interpreting Physician: Anthony Kaiser MD Dictated Date/Time: 03/01/19 1059 cc: Graeme Cedillo MD; Gregory Villalobos MD) - CONSULTS/PCP/HOSPITALIST Notification #1 *Consult/PCP/Hospitalist*: hospitalists Time Discussed: 15:50 Consult Disposition: Admit Departure - Departure Date of Disposition Decision: 03/01/19 Time of Disposition Decision: 15:51 DIAGNOSIS: SOB (shortness of breath) Pneumonia Qualifiers: Pneumonia type: due to unspecified organism Laterality: unspecified laterality Lung location: unspecified part of lung Qualified Code(s): J18.9 - Pneumonia, unspecified organism Disposition: ADMITTED INPATIENT 09 Certified Medical Emergency: Emergent Condition: Stable Additional Freetext Instructions: ED Follow Up Instructions: You have been treated by a care provider in the Emergency Department. These instructions are being provided to you so you can have an understanding of how to care for yourself upon discharge. Upon discharge from the Emergency Department, you are responsible for making arrangements for follow-up care by a physician of your choice. Take all prescribed medications as directed. Return to the Emergency Department immediately for any new or worsening symptoms. You may call the Physician Referral phone number at [phone] to obtain a list of Physicians who are taking new patients. Referrals and Follow-Ups: Seljuki,Adnan A., MD [Primary Care Provider] - - Critical Care Note This patient required my direct & personal management of CC.: Yes Total Time (mins): 36 Critical Care Statement: This patient required my direct personal management to treat or rule out processes, the absence of which, could potentiallly result in sudden, clinically significant life or limb threatening deterioration. Attestation - Physician/ JOANN Attestation Patient care was provided by Advanced Practice Provider:: No The physician spent face to face time with patient:: Yes Advanced Practice Provider documentation review:: Supervising physician onsite and consulted in the evaluation and care of this patient. The physician did have a face to face encounter with the patient. This chart was documented by the indicated scribe, (Mague Parikh Scribe) and accurately reflects the services I performed and decisions made by me, Graeme Cedillo MD, as attested by the provider's signature.
[2019-03-01] MEDS ORDERED: TYLENOL PO PRN (18:29)
[2019-03-01] MEDS ORDERED: ZYVOX 600 MG/D5W 600 MG/300 ML IVPB IV SCH (18:45)
[2019-03-01] MEDS ORDERED: MAXIPIME 2 GM in NS 100 ML IV ONE (18:45)
[2019-03-01] MEDS ORDERED: VANCOMYCIN IV PER PHARMACY MISC SCH (18:45)
--- NOTE | 2019-03-01 19:05 | Diag Imaging Result Doc PS360 ---
EXAM: CT THORAX W/O CONTRAST 03/01/2019 HISTORY: recurrent pneumonia TECHNIQUE: This exam was performed using automated exposure control, adjustment of mA or kV according to patient size, and/or use of iterative reconstruction technique. COMMENT: The current examination is compared with the previous study of 08/25/2018. There is minimal pleural thickening posteriorly and inferiorly on the left. The pleural fluid collection which was previously present on the right is no longer present. There is severe bullous emphysema particularly in the right apex. There are patchy opacities in the left lower lobe which are worse than on the previous study. There is a 5 mm nodule present on image 77 which was not present at the time the previous examination. There is some mild tree-in-bud opacity in the right lower lobe which was not apparently present previously. There is some bronchial thickening in both lower lobes. There is a tiny nodule in the left upper lobe on image 32 which was present at the time the previous study on image 44. The appearance of the mediastinum has not changed significantly. IMPRESSION: COPD. Left lower lobe bronchopneumonia. Minimal pneumonitis or bronchopneumonia in the right lower lobe. Electronically signed by Osmar De Santiago 03/01/2019 7:03 PM
[2019-03-01] MEDS: MUCOMYST 20% INH SCH (19:18)
[2019-03-01] MEDS: DUONEB (A & A) INH SCH ×2 (19:18→23:10)
[2019-03-01] MEDS: MAXIPIME 2 GM in NS 100 ML IV SCH (19:33)
[2019-03-01] MEDS ORDERED: VANCOMYCIN 1,950 MG in NS 500 ML IV ONE (21:00)
--- NOTE | 2019-03-01 21:28 | HISTORY AND PHYSICAL ---
PRIMARY CARE PHYSICIAN: Gregory Villalobos MD ONCOLOGIST: Tito Aquino MD CHIEF COMPLAINT: Increasing shortness of breath, productive cough for the last week. HISTORY OF PRESENT ILLNESS: Mr. Dragan Martini is a 63-year-old male with a history of follicular non-Hodgkin lymphoma, immunoglobulin deficiency, recurrent pneumonia and Parkinson disease, who presented to the ER today with a chief complaint of worsening shortness of breath and productive cough. The patient states that since last , he has noticed that he has been coughing more and felt more short of breath with minimal exertion. He denies having any fever, but does complain of a poor appetite and insomnia. The patient reports that he has been coughing up yellow sputum. The patient was seen by Dr. Rafael Aquino on 02/23 for his symptoms of pneumonia. The patient was given a prescription for amoxicillin and Levaquin, which the patient states he has been taking since the medications were prescribed. The patient reports that he has not noticed any improvement in symptoms, so he decided to come to the ER. In the ER, the patient was noted to have an oxygen saturation of 85% on room air. Also, a CT of the chest was done that revealed a left lower lobe pneumonia, in addition to infiltrates in the right lower lobe. In light of these findings, the patient will be admitted for further treatment and evaluation. PAST MEDICAL HISTORY: 1. Recurrent pneumonia. 2. Immunoglobulin deficiency. 3. Follicular nonHodgkin lymphoma. 4. Parkinson disease. 5. COPD. 6. Hypertension. PAST SURGICAL HISTORY: 1. Right ring finger fracture repair. 2. Left chest Port-A-Cath placement. SOCIAL HISTORY: The patient has been for over 20 years. He denies any tobacco, alcohol or illicit drug use. FAMILY HISTORY: The patient's mother had no medical problems. The patient's father from complications related to emphysema. ALLERGIES: No known drug allergies. HOME MEDICATIONS: 1. Carbidopa/levodopa 1 tablet oral 3 times a day. 2. Zyrtec 10 mg p.o. at bedtime. 3. Folic acid 1 mg p.o. daily. 4. Levaquin 500 mg p.o. daily. 5. Amoxicillin 500 mg p.o. every 8 hours. 6. Lovastatin 20 mg p.o. at bedtime. 7. Megace 20 mg p.o. daily. 8. Senna Plus 1 tablet oral daily. REVIEW OF SYSTEMS: A 12-point review of systems has been performed. Please refer to the history of present illness for pertinent positives and negatives. PHYSICAL EXAMINATION: VITAL SIGNS: Temperature 98.4 degrees, blood pressure 140/88, heart rate 92, respirations 20, O2 saturation 85% on room air. GENERAL: This is a chronically ill-appearing elderly male, lying on the stretcher in no acute distress. SKIN: No rashes, no lesions. Normal capillary refill. HEENT: Head normocephalic, atraumatic. Eyes: Conjunctivae clear, PERRLA, EOMI. NECK: Supple. No JVD. Trachea is midline. HEART: S1, S2 normal, tachycardic. LUNGS: Diffuse expiratory wheeze. Diminished breath sounds at the bases. ABDOMEN: Positive bowel sounds. Soft, nontender, nondistended. EXTREMITIES: No edema, no cyanosis. No calf tenderness. NEUROLOGIC: The patient is alert and oriented x4. No focal neurologic deficits noted. Cranial nerves 2 through 12 intact. LABORATORY DATA: White blood cell count 4.4, hemoglobin 13, hematocrit 37, platelets 79,000. ABG pH of 7.42, pCO2 is 39, pO2 is 60. Sodium 141, potassium 4.1, chloride 104, CO2 is 26, BUN 18, creatinine 1.1, glucose 89, AST 25. Troponin less than 0.01. CK 61. Albumin 4.5. UA negative. DIAGNOSTIC DATA: Chest CT: Left lower lobe pneumonia. Bronchopneumonia in the right lower lobe. ASSESSMENT AND PLAN: 1. Bilateral pneumonia. The patient has had multiple episodes of pneumonia. We will start the patient on broad-spectrum antibiotics. Blood cultures have already been obtained. A sputum Gram stain and culture has been ordered. We will also order a modified barium swallow to ensure that the patient is not aspirating. We will also start bronchodilator therapy and incentive spirometry. We will consult with Infectious Disease for further treatment recommendations. 2. Immunoglobulin deficiency. We will check an immunoglobulin level. 3. Follicular non-Hodgkin lymphoma. Aware. The patient is followed by Dr. Aquino. 4. Parkinson disease. Continue on carbidopa/levodopa. 5. Chronic obstructive pulmonary disease. Continue with bronchodilator therapy and supplemental oxygen. 6. Chronic thrombocytopenia. We will monitor the patient's platelet count closely. 7. Hypertension. We will start the patient on Norvasc. cc: Mojgan Seo MD [facility]
[2019-03-01] MEDS: NORVASC PO SCH (22:34)
[2019-03-01] MEDS: ZYRTEC PO SCH (22:34)
[2019-03-01] MEDS: MUCINEX PO SCH (22:34)
[2019-03-01] MEDS: DESYREL PO SCH (22:35)
[2019-03-01] MEDS: MEVACOR PO SCH (22:35)
[2019-03-02] MEDS: DUONEB (A & A) INH SCH ×6 (03:15→23:35)
[2019-03-02] MEDS: MAXIPIME 2 GM in NS 100 ML IV SCH ×3 (06:59→23:50)
[2019-03-02] MEDS ORDERED: PROTONIX PO SCH (07:00)
[2019-03-02] MEDS: MUCOMYST 20% INH SCH (07:21)
[2019-03-02] MEDS: FLONASE NAS SCH (09:26)
[2019-03-02] MEDS: FOLIC ACID PO SCH (09:28)
[2019-03-02] MEDS: SINEMET 25/100 PO SCH ×3 (09:28→18:20)
[2019-03-02] MEDS: MUCINEX PO SCH ×2 (09:28→20:36)
[2019-03-02] MEDS: TESSALON PO SCH ×3 (09:28→18:20)
[2019-03-02] MEDS: PERICOLACE PO SCH (09:28)
[2019-03-02] MEDS: NORVASC PO SCH ×2 (09:28→20:35)
[2019-03-02] MEDS: TUSSIONEX LIQUID PO SCH ×2 (09:30→20:36)
[2019-03-02 09:45] LABS: BASO# 0.01 X1000 (0.0-0.2); BASO% 0.2 % (0.0-0.8); EOS# 0.07 X1000 (0.0-0.7); EOS% 1.5 % (0.0-10.0); HEMATOCRIT 35.6 % (42.0-52.0); HEMOGLOBIN 12.8 g/dL (14.0-18.0); LYMPH# 1.08 X1000 (1.2-3.4); LYMPH% 23.5 % (20.5-51.1); MCH 31.7 PG (27-31); MCV 88.1 FL (81-99); MONO# 0.25 X1000 (0.11-0.59); MONO% 5.4 % (1.7-9.3); MPV 10.7 FL (7.4-10.4); NEUT# 3.19 X1000 (1.4-6.5); NEUT% 69.4 % (42.2-75.2); PLT 80 X1000 (130-400); RBC 4.04 XMIL (4.7-6.1); RDW 10.9 % (11.5-14.5)
--- NOTE | 2019-03-02 10:01 | INFECTIOUS DISEASE PROGRESS NO ---
DATE: 03/02/2019 PRESENT ILLNESS: The patient was being treated for Pseudomonas pneumonia and Haemophilus bacteremia. He had IV antibiotics in the hospital, and at home, he was started on amoxicillin and Levaquin. The patient became more short of breath, and he also had left-sided pleuritic chest pain. He also has been having night sweats. He has been coughing and bringing up clear sputum, and sometimes his sputum is yellow in color. He does not remember taking his temperature. MEDICATIONS: The patient, at home, had been on amoxicillin and Levaquin. He is in the emergency room now, and he has been started on vancomycin and cefepime. PHYSICAL EXAMINATION: Vital Signs: Temperature is 97.1 degrees, pulse 78, respirations 18, blood pressure 120/60. The patient weighs 158 pounds. General: This is a somewhat ill-appearing, middle-aged male. He is in no acute distress. HEENT: He can hear my spoken words and see near objects. He does not have any white patches on his tongue. Neck: The patient does not have any pain when he moves his neck. Lungs: Clear to auscultation. Cardiovascular: Heart rate is regular. Thorax: The patient has a Port-A-Cath in place on the left side of his chest. The site is not swollen or draining. Cardiovascular: Heart rate is regular. Lungs: Clear to auscultation. Abdomen: Soft and nontender. Neurologic: The patient is awake. He can move his extremities. There is no tremor. His sensation is intact to touch. His recent memory about his medical condition appears intact. Integument: No rash noted. IMAGING AND LABORATORY DATA: The patient's chest CT scan shows changes of COPD and also bibasilar pneumonia with the left lung having more pneumonia than the right lung. Creatinine is 1.1. GFR is greater than 60. Liver function studies are normal. Urinalysis showed no white cells or bacteria. Blood cultures are pending. Swab for influenza was negative. ASSESSMENT AND PLAN: The patient had Pseudomonas pneumonia and Haemophilus bacteremia, whether his Pseudomonas pneumonia has not completely cleared up or he may have developed a new kind of pneumonia, and I agree with the plan of treating the patient with vancomycin and cefepime. I have increased the dose of cefepime to 2 grams intravenously every 8 hours. The patient also has an immunoglobulin deficiency, and he is being treated for this by Dr. Aquino. We do have immunoglobulin levels pending, however. COMORBIDITIES: He has non-Hodgkin's lymphoma, COPD, Parkinson's disease, and immunoglobulin deficiency. cc: Rafael Aquino MD
[2019-03-02 10:30] LABS: BUN 15 mg/dL (8-22); CALCIUM 8.9 mg/dL (8.8-10.2); ESTIMATED GFR > 60; GLUCOSE 94 mg/dL (70-104); TCO2 24 mmol/L (25-35)
[2019-03-02 10:35] LABS: CHLORIDE 108 mmol/L (98-107); POTASSIUM 4.1 mmol/L (3.5-5.1); SODIUM 144 mmol/L (136-145)
[2019-03-02 11:06] LABS: AGAP 12; COSMO 287
--- NOTE | 2019-03-02 11:47 | Diag Imaging Result Doc PS360 ---
BA SWALLOW W/VIDEO SPEECH THER - 03/02/2019 INDICATION: Recurrent pneumonia/possible aspiration TECHNIQUE: Total fluoroscopy time was 21 seconds. 118 images were obtained. COMPARISON: None FINDINGS: There is no penetration or aspiration. There is a good swallowing mechanism. The esophagus appears normal and functions normally. IMPRESSION: Negative exam. Electronically signed by Sean Del Rio 03/02/2019 11:45 AM
[2019-03-02] MEDS: NS 1,000 ML IV SCH (16:08)
--- NOTE | 2019-03-02 16:26 | PROGRESS NOTE ---
DATE: 03/02/2019 SUBJECTIVE: The patient is resting comfortably in bed. He does have diffuse wheezing, but states that he is still coughing. OBJECTIVE: Vital Signs: Temperature 98.1 degrees blood pressure 130/83, heart rate 83, respirations 18, O2 saturation is 99% on 2 L nasal cannula. General: This is an elderly male, lying on the stretcher in no acute distress. Head: Normocephalic, atraumatic. Heart: S1, S2 normal. Regular rate and rhythm. Lungs: Diffuse expiratory wheezes with rhonchi. Abdomen: Positive bowel sounds. Soft, nontender, nondistended. Extremities: No edema, no cyanosis. Neurologic: The patient is alert and oriented x3. LABORATORY DATA: White blood cell count 4.6, hemoglobin 12, hematocrit 35, platelets 80,000. Sodium 144, potassium 4.1, chloride 108, CO2 of 24, BUN 15, creatinine 1, glucose 94. ASSESSMENT AND PLAN: 1. Bilateral lobe pneumonia. We will continue with antibiotic therapy as directed by DR. Aquino. Continue with bronchodilator therapy and supplemental oxygen. The patient has also been provided with an incentive spirometer. 2. Non Hodgkin's lymphoma. Aware. The patient is followed by DR. Aquino. 3. Parkinson's disease. Continue on carbidopa/levodopa. 4. Chronic obstructive pulmonary disease (COPD). Continue with bronchodilator therapy. 5. Hypertension. Continue on Norvasc. 6. Chronic thrombocytopenia. Stable. cc: Mojgan Seo MD MTDD
[2019-03-02] MEDS: DESYREL PO SCH (20:35)
[2019-03-02] MEDS: ZYRTEC PO SCH (20:36)
[2019-03-02] MEDS: MEVACOR PO SCH (20:36)
[2019-03-02] MEDS ORDERED: VANCOMYCIN 1,600 MG in NS 250 ML IV SCH (21:00)
[2019-03-03] MEDS: DUONEB (A & A) INH SCH ×7 (03:25→23:50)
[2019-03-03] MEDS: NS 1,000 ML IV SCH (05:21)
[2019-03-03] MEDS: MUCOMYST 20% INH SCH ×3 (06:01→20:10)
[2019-03-03] MEDS: MAXIPIME 2 GM in NS 100 ML IV SCH ×2 (06:16→20:03)
[2019-03-03 06:44] LABS: EOS# 0.14 X1000 (0.0-0.7); EOS% 2.8 % (0.0-10.0); HEMATOCRIT 35.7 % (42.0-52.0); HEMOGLOBIN 12.7 g/dL (14.0-18.0); LYMPH# 1.28 X1000 (1.2-3.4); LYMPH% 25.8 % (20.5-51.1); MCH 31.4 PG (27-31); MCHC 35.6 g/dL (33-37); MCV 88.4 FL (81-99); MPV 10.1 FL (7.4-10.4); NEUT# 3.25 X1000 (1.4-6.5); NEUT% 65.4 % (42.2-75.2); PLT 92 X1000 (130-400); RBC 4.04 XMIL (4.7-6.1); RDW 10.9 % (11.5-14.5); WBC 4.97 X1000 (4.8-10.8)
[2019-03-03] MEDS ORDERED: HALL'S COUGH LOZENGE MT PRN (07:04)
[2019-03-03 07:16] LABS: AGAP 8; BUN 15 mg/dL (8-22); CALCIUM 8.6 mg/dL (8.8-10.2); CHLORIDE 106 mmol/L (98-107); COSMO 276; CREATININE 0.9 mg/dL (0.7-1.2); ESTIMATED GFR > 60; GLUCOSE 92 mg/dL (70-104); SODIUM 138 mmol/L (136-145); TCO2 24 mmol/L (25-35)
[2019-03-03] MEDS: TESSALON PO SCH ×3 (08:48→18:32)
[2019-03-03] MEDS: PERICOLACE PO SCH ×2 (08:48→20:05)
[2019-03-03] MEDS: MUCINEX PO SCH ×2 (08:48→20:05)
[2019-03-03] MEDS: SINEMET 25/100 PO SCH ×3 (08:48→18:32)
[2019-03-03] MEDS: FOLIC ACID PO SCH (08:49)
[2019-03-03] MEDS: NORVASC PO SCH ×2 (08:49→20:05)
[2019-03-03] MEDS ORDERED: IVIG DOSING ORDER MISC SCH (11:45)
--- NOTE | 2019-03-03 11:50 | PROGRESS NOTE ---
DATE: 03/03/2019 SUBJECTIVE: The patient is resting comfortably. He states that he did not sleep well last night. He did receive trazodone, but states that he it did not work. OBJECTIVE: Vital Signs: Temperature 98.3 degrees, blood pressure 153/82, heart rate 75, respirations 16, O2 saturation 97% on room air. General: This is an elderly male lying in bed in no acute distress. Heart: S1, S2 normal. Regular rate and rhythm. Lungs: Clear to auscultation bilaterally. Abdomen: Positive bowel sounds. Soft, nontender, nondistended. Extremities: No edema. No cyanosis. Neurologic: The patient is alert and oriented x3. LABS: White blood cell count 4.9, hemoglobin 12, hematocrit 35, platelets 92. Sodium 138, potassium 4, chloride 106, CO2 24. BUN 15, creatinine 0.9, glucose 92. ASSESSMENT AND PLAN: 1. Bilateral lobe pneumonia. Continue with antibiotic therapy. 2. Non-Hodgkin lymphoma. Aware. 3. Immunoglobulin deficiency. We will defer to Dr. Aquino or Dr. Aquino regarding an IVIG. 4. Parkinson disease. Continue on carbidopa/levodopa. 5. Chronic obstructive pulmonary disease. Continue with bronchodilator therapy. 6. Hypertension. Continue on Norvasc. 7. Chronic thrombocytopenia. Stable. 8. Insomnia. Will increase the trazodone dosage. cc: Mojgan Seo MD
[2019-03-03] MEDS ORDERED: CITRATE OF MAGNESIA PO ONE (12:23)
[2019-03-03] MEDS ORDERED: GAMUNEX C IV ONE (13:00)
[2019-03-03] MEDS ORDERED: DILUENT IV ONE (13:00)
[2019-03-03] MEDS: FLONASE NAS SCH (14:37)
--- NOTE | 2019-03-03 14:57 | HEMO/ONC CONSULTATION ---
DATE: 03/03/2019 CHIEF COMPLAINT: We have been consulted for further evaluation of the patient's non-Hodgkin's lymphoma and immunoglobulin deficiency. HISTORY OF PRESENT ILLNESS: Mr. Martini is a 63-year-old male who presented to the emergency department complaining of shortness of breath that worsened over the last 3 days. The patient also had a productive cough. The patient stated it started on and continued to get worse. The patient says he is short of breath even on minimal exertion. Patient denies any fever. The patient says that his sputum when coughing was yellow. The patient was seen by Dr. Aquino on February 23 for symptoms of pneumonia, was given a prescription for amoxicillin, Levaquin, and he has been taking it since then, but he has not noticed any improvement. He decided to come to the ER for evaluation and admission at that time. Mr. 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 The patient also had treatment of Rituxan where he completed 4 cycles in 2012. The patient did have progression of the disease and received rituximab, fludarabine, and completed 4 cycles on 01/06/2017. Since that time, the patient has been doing well and his lymphoma had been under control. The patient also recently started following up for his immunoglobulin deficiency. He received his last dose of IVIG on 02/08/2019. PAST MEDICAL HISTORY: Recurrent pneumonia, immunoglobulin deficiency, follicular non-Hodgkin's lymphoma, heart disease, COPD and hypertension. PAST SURGICAL HISTORY: Ring finger fracture repair, left Port-A-Cath placement. SOCIAL HISTORY: Denies any tobacco, alcohol, illicit drug use. FAMILY HISTORY: Emphysema. ALLERGIES: No known drug allergies. HOME MEDICATIONS: Carbidopa/levodopa, Zyrtec, folic acid, Levaquin, amoxicillin, lovastatin, Megace and Senna Plus. REVIEW OF SYSTEMS: Negative as per HPI. PHYSICAL EXAM: Vital Signs: Temperature 98.3 degrees, heart rate 75, respiratory rate 16, blood pressure 153/82, saturation 97% on room air. General: Patient is awake, lying in bed with no acute distress noted. HEENT: Anicteric. Pupils PERRLA. Mucous membranes appear to be more dry. Neck: Supple. Trachea midline. No JVD. Lymph node survey: No palpable lymphadenopathy. Cardiovascular: S1, S2. Regular rate and rhythm. Chest: Bilateral breath sounds diminished bilaterally. Abdomen: Soft, nontender. Bowel sounds present in all 4 quadrants. Skin: Warm, dry, and intact. Neurologic: Alert and oriented x3. No focal deficits noted. LABORATORY DATA: White blood cell count is 4.97, hemoglobin 12.7, hematocrit 35.7, platelets are 92. Potassium 4.0, BUN 15, creatinine 0.9. RADIOLOGY REPORTS: A CT chest showed COPD, left lower lobe bronchopneumonia, minimal pneumonitis or bronchopneumonia in the right lower lobe. ASSESSMENT AND PLAN: 1. Non-Hodgkin's lymphoma: The patient's non-Hodgkin's lymphoma has been under good control since he finished treatment 2016. Continue to monitor at this time. 2. Bilateral lobe pneumonia: Continue antibiotics as ordered per primary medical team and Infectious Disease. Continue recommendations per them. 3. Immunoglobulin deficiency: Patient received his last dose of IVIG in the office on 02/08/2019. His IgG level is increasing. His last one in January was 435 and it is now 633. Patient will get IVIG 800mg/kg today. 4. Chronic thrombocytopenia: Platelet counts today are 92,000. Baseline platelet count runs anywhere from 93 to 120 over the last 6 complete blood counts in the clinic. Continue to monitor. 5. Chronic obstructive pulmonary disease: Continue recommendation per primary medical team and Pulmonology. 6. Hypertension: Continue home medications as ordered. Dictated by MICHAEL Gillespie for Tito Aquino MD As above. Patient admitted with recurrent pneumonia. He has hypogammaglobulinemia. Received 1 dose of IVIG for 3 weeks ago. IgG level has improved from about 400 now to about 600, however not in the normal range. The dose IVIG at a higher dose of 800 mg/kg. Lymphoma in remission. Tito Aquino M.D. cc: Tito Aquino MD [facility]
[2019-03-03] MEDS: TUSSIONEX LIQUID PO SCH ×2 (16:28→21:20)
--- NOTE | 2019-03-03 17:02 | INFECTIOUS DISEASE PROGRESS NO ---
DATE: 03/02/2019 SUBJECTIVE: The patient is being treated for a Pseudomonas pneumonia. He had Haemophilus bacteremia, but that has been treated already completely. The patient continues to have dyspnea especially on exertion. MEDICATIONS: The patient is on a combination of cefepime and vancomycin. PHYSICAL EXAMINATION: Vital Signs: Temperature is 98.3 degrees, pulse 74, respirations 18, blood pressure 153/82. General: This is an ill-appearing middle-aged male. He is in no acute distress. Head/eyes/ears/nose/throat: He can hear my spoken words and see near objects. He does not have any white patches on his tongue. Lungs: Clear to auscultation. Cardiovascular: Heart rate is regular. Thorax: Patient has a Port-A-Cath present on the left side. The site is not swollen or draining. Abdomen: Soft and nontender. Neurologic: The patient is alert. He is able to ambulate. There is no tremor. LAB AND X-RAY: The patient's CBC today shows a white count of 4970, hemoglobin 12.7, and platelet count is 92,000. Creatinine is 0.9. IgA is less than 5. IgG is 633. Sputum is growing a gram- negative shayan. Blood cultures are sterile and swab for influenza is negative. ASSESSMENT AND PLAN: The patient continues to have gram-negative shayan pneumonia. I think the current sputum culture will returns supervisor to be Pseudomonas. The negative blood cultures indicates that the patient has Haemophilus bacteremia has been cleared. 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 The low IgA level will unfortunately mean that the patient will be very susceptible to bacterial infections and they will be more difficult for him to get rid of them when he does have one. For right now I am going to stop the patient's vancomycin and continue cefepime pending final culture result on a gram-negative shayan in the patient's sputum. As mentioned yesterday, Dr. Aquino is managing the patient's immunoglobulin replacement therapy. His IgG level of 633 is only minimally low and I do not think it merits having any replacement therapy for it at this time. COMORBIDITIES: He has non-Hodgkin's lymphoma, COPD, Parkinson's disease, and as mentioned above, an immunoglobulin deficiency. cc: Rafael Aquino MD
[2019-03-03] MEDS: ZYRTEC PO SCH (20:05)
[2019-03-03] MEDS: DESYREL PO SCH (20:05)
[2019-03-03] MEDS: MEVACOR PO SCH (20:05)
[2019-03-04] MEDS: XALATAN 0.005% OPH SOLN BOTH EYES SCH ×2 (01:20→22:33)
[2019-03-04] MEDS: DUONEB (A & A) INH SCH ×5 (03:30→19:55)
[2019-03-04] MEDS: MAXIPIME 2 GM in NS 100 ML IV SCH ×3 (03:53→19:59)
[2019-03-04 07:31] LABS: HEMATOCRIT 31.9 % (42.0-52.0); HEMOGLOBIN 11.3 g/dL (14.0-18.0); MCH 31.2 PG (27-31); MCHC 35.4 g/dL (33-37); MCV 88.1 FL (81-99); MPV 10.2 FL (7.4-10.4); RBC 3.62 XMIL (4.7-6.1); RDW 10.9 % (11.5-14.5); WBC 3.75 X1000 (4.8-10.8)
[2019-03-04 07:54] LABS: AGAP 11; BUN 15 mg/dL (8-22); CALCIUM 8.4 mg/dL (8.8-10.2); CHLORIDE 106 mmol/L (98-107); COSMO 278; ESTIMATED GFR > 60; GLUCOSE 86 mg/dL (70-104); POTASSIUM 3.5 mmol/L (3.5-5.1); SODIUM 139 mmol/L (136-145); TCO2 22 mmol/L (25-35)
[2019-03-04] MEDS: MUCOMYST 20% INH SCH ×2 (07:56→19:55)
[2019-03-04] MEDS: TUSSIONEX LIQUID PO SCH ×3 (10:23→22:32)
[2019-03-04] MEDS: TESSALON PO SCH ×3 (10:24→17:26)
[2019-03-04] MEDS: MUCINEX PO SCH ×2 (10:24→19:59)
[2019-03-04] MEDS: SINEMET 25/100 PO SCH ×3 (10:24→17:26)
[2019-03-04] MEDS: NORVASC PO SCH ×3 (10:24→22:32)
[2019-03-04] MEDS: PERICOLACE PO SCH ×2 (10:24→19:59)
[2019-03-04] MEDS: FOLIC ACID PO SCH (10:24)
[2019-03-04] MEDS ORDERED: DULCOLAX PR ONE (12:13)
[2019-03-04] MEDS: LACTULOSE PO SCH ×3 (13:05→22:34)
--- NOTE | 2019-03-04 14:48 | Diag Imaging Result Doc PS360 ---
EXAM: ABDOMEN FLAT/UPRIGHT - 03/04/2019 HISTORY: constipation TECHNIQUE: Supine and upright abdomen COMPARISON: None. FINDINGS: There is residual barium from recent barium swallow in the colon and rectum. The bowel gas pattern otherwise appears nonspecific and nonobstructive. There is no free air identified. There are small calcifications overlying the left kidney which are suspicious for renal stones. IMPRESSION: Residual barium in colon and rectum. Nonspecific bowel gas pattern otherwise. Apparent stones in left kidney. Electronically signed by Thaddeus Jordan 03/04/2019 2:45 PM
--- NOTE | 2019-03-04 15:41 | Diag Imaging Result Doc PS360 ---
EXAM: CT NECK W/CONTRAST - 03/04/2019 HISTORY: swelling in the right side of the neck TECHNIQUE: CT neck with intravenous contrast COMPARISON: None. FINDINGS: The right parotid gland is somewhat enlarged and enhances heterogeneously. There is mild edema around and inferior to the right parotid gland. These findings may relate to parotiditis. The right submandibular gland is moderately enlarged but demonstrates homogeneous enhancement. There are nonspecific small cervical lymph nodes on the right. There is fairly extensive paranasal sinus disease at the visualized paranasal sinuses. Visualized portions of the lung apices show substantial emphysematous changes, particularly on the right. IMPRESSION: Enlarged right parotid gland with heterogeneous enhancement, and surrounding edema. This may relate to parotiditis. Correlation with clinical evaluation is recommended. There is also some enlargement of the right submandibular gland, which enhances homogeneously. Paranasal sinusitis. This exam was performed using automated exposure control, adjustment of mA or kV according to patient size, and/or use of iterative reconstruction technique. Electronically signed by Thaddeus Jordan 03/04/2019 3:39 PM
[2019-03-04] MEDS: NS 1,000 ML IV SCH (17:26)
[2019-03-04] MEDS ORDERED: NORCO-5 PO PRN (18:28)
[2019-03-04] MEDS: FLONASE NAS SCH (18:33)
[2019-03-04] MEDS: DESYREL PO SCH ×2 (19:56→22:32)
[2019-03-04] MEDS: ZYRTEC PO SCH ×2 (19:58→22:32)
[2019-03-04] MEDS: MEVACOR PO SCH (19:59)
--- NOTE | 2019-03-04 20:13 | PROGRESS NOTE ---
DATE: 03/04/2019 SUBJECTIVE: The patient is resting comfortably. He states that he has not had a bowel movement yet despite receiving magnesium citrate yesterday. OBJECTIVE: Vital Signs: Temperature 98.5 degrees, blood pressure 138/72, heart rate 93, respirations 20, O2 saturation 97% on room air. General: This is an elderly male lying in bed in no acute distress. Heart: S1, S2 normal. Regular rate and rhythm. Lungs: Mild expiratory wheezes bilaterally. Abdomen: Positive bowel sounds. Soft, nontender, nondistended. Extremities: No edema, no cyanosis. Neurologic: The patient is alert and oriented x3. LABORATORY DATA: Reviewed. ASSESSMENT AND PLAN: 1. Pneumonia secondary to Klebsiella pneumoniae. Continue with the current antibiotic regimen as directed by Dr. Aquino. 2. Sinusitis. Continue with antibiotic therapy. 3. Parotiditis. Continue with antibiotic therapy. 4. Hypogammaglobinemia. Aware. The patient receives intravenous immune globulin infusions as outpatient. 5. Non-Hodgkin lymphoma. The patient is currently in remission and being followed by Dr. Aquino. 6. Hypertension. Continue on Norvasc. 7. Chronic thrombocytopenia. Stable. 8. Parkinson disease. Continue on carbidopa/levodopa. 9. Insomnia. Continue on trazodone. cc: Mojgan Seo MD
[2019-03-04] MEDS ORDERED: MIRALAX PO SCH (21:00)
[2019-03-04] MEDS: ZOFRAN IV PRN (22:19)
[2019-03-05] MEDS: DUONEB (A & A) INH SCH ×7 (03:51→23:30)
[2019-03-05] MEDS: ZOFRAN IV PRN (05:02)
[2019-03-05] MEDS: MOVANTIK PO SCH ×2 (05:02→06:35)
[2019-03-05] MEDS: MAXIPIME 2 GM in NS 100 ML IV SCH ×3 (05:02→21:24)
[2019-03-05 06:51] LABS: HEMATOCRIT 32.3 % (42.0-52.0); HEMOGLOBIN 11.4 g/dL (14.0-18.0); MCH 32.1 PG (27-31); MCHC 35.3 g/dL (33-37); MPV 10.7 FL (7.4-10.4); RBC 3.55 XMIL (4.7-6.1); RDW 11.2 % (11.5-14.5); WBC 3.71 X1000 (4.8-10.8)
[2019-03-05 07:37] LABS: AGAP 10; BUN 11 mg/dL (8-22); CALCIUM 8.8 mg/dL (8.8-10.2); CHLORIDE 109 mmol/L (98-107); COSMO 279; ESTIMATED GFR > 60; GLUCOSE 97 mg/dL (70-104); POTASSIUM 3.5 mmol/L (3.5-5.1); SODIUM 140 mmol/L (136-145); TCO2 21 mmol/L (25-35)
[2019-03-05] MEDS: MUCOMYST 20% INH SCH ×2 (08:03→19:45)
[2019-03-05] MEDS: TESSALON PO SCH ×3 (11:04→18:47)
[2019-03-05] MEDS: MUCINEX PO SCH ×2 (11:04→21:24)
[2019-03-05] MEDS: NORVASC PO SCH ×2 (11:04→21:25)
[2019-03-05] MEDS: SINEMET 25/100 PO SCH ×3 (11:04→18:46)
[2019-03-05] MEDS: FOLIC ACID PO SCH (11:04)
[2019-03-05] MEDS: TUSSIONEX LIQUID PO SCH ×2 (11:04→21:24)
--- NOTE | 2019-03-05 17:23 | PROGRESS NOTE ---
DATE: 03/05/2019 SUBJECTIVE: The patient states that he feels weak today and he is now having diarrhea. OBJECTIVE: Vital Signs: Temperature 99 degrees, blood pressure 114/71, heart rate 87, respirations 16, O2 saturation 96% on 2 L nasal cannula. General: This is an elderly male lying in bed, in no acute distress. Heart: S1, S2 normal. Regular rate and rhythm. Lungs: Equal air entry bilaterally. No wheezing. No rales. No rhonchi. Abdomen: Positive bowel sounds. Soft, nontender, nondistended. Extremities: No edema. No cyanosis. Neurologic: The patient is alert and oriented x4. LABS: White blood cell count 3.7, hemoglobin 11, hematocrit 32, platelets 75,000. BUN 11, creatinine 1, sodium 140, potassium 3.5. ASSESSMENT AND PLAN: 1. Pneumonia secondary to Klebsiella pneumoniae. Continue on the current antibiotic regimen. 2. Sinusitis. Continue with antibiotic therapy. 3. Parotiditis. Continue on antibiotic therapy. 4. Hypogammaglobinemia. Aware. 5. Non-Hodgkin lymphoma. The patient is followed by Dr. Aquino. 6. Chronic thrombocytopenia. The patient's platelet count is a little lower today. We will continue to monitor this closely. 7. Diarrhea. We will hold the patient's laxatives today. We will check the stool for Clostridium difficile. 8. Hypertension. Continue on Norvasc. 9. Parkinson disease. Continue on carbidopa/levodopa. 10. Insomnia. Continue on trazodone. cc: MD ROGER Oro
[2019-03-05] MEDS: FLONASE NAS SCH (18:51)
[2019-03-05] MEDS: ZYRTEC PO SCH (21:24)
[2019-03-05] MEDS: MEVACOR PO SCH (21:25)
[2019-03-05] MEDS: XALATAN 0.005% OPH SOLN BOTH EYES SCH (21:25)
[2019-03-05] MEDS: DESYREL PO SCH (21:25)
[2019-03-06] MEDS: DUONEB (A & A) INH SCH ×6 (03:05→23:55)
[2019-03-06] MEDS: NS 1,000 ML IV SCH ×2 (05:03→21:19)
[2019-03-06] MEDS: MOVANTIK PO SCH ×2 (05:04→06:17)
[2019-03-06] MEDS: MAXIPIME 2 GM in NS 100 ML IV SCH ×3 (05:04→21:19)
[2019-03-06 07:13] LABS: AGAP 8; BUN 9 mg/dL (8-22); CALCIUM 8.8 mg/dL (8.8-10.2); CHLORIDE 110 mmol/L (98-107); COSMO 278; ESTIMATED GFR > 60; GLUCOSE 94 mg/dL (70-104); POTASSIUM 3.6 mmol/L (3.5-5.1); SODIUM 140 mmol/L (136-145); TCO2 22 mmol/L (25-35)
[2019-03-06] MEDS: MUCOMYST 20% INH SCH ×2 (07:54→19:55)
[2019-03-06] MEDS: FLONASE NAS SCH (09:43)
[2019-03-06] MEDS: TUSSIONEX LIQUID PO SCH ×2 (09:44→21:19)
[2019-03-06] MEDS: MUCINEX PO SCH ×2 (09:45→21:18)
[2019-03-06] MEDS: FOLIC ACID PO SCH (09:45)
[2019-03-06] MEDS: SINEMET 25/100 PO SCH ×3 (09:45→18:55)
[2019-03-06] MEDS: TESSALON PO SCH ×3 (09:45→18:55)
[2019-03-06] MEDS: NORVASC PO SCH ×2 (09:45→21:18)
--- NOTE | 2019-03-06 11:19 | HEMO/ONC PROGRESS NOTE ---
DATE: 03/06/2019 SUBJECTIVE: The patient says he slightly feels better, still very weak. OBJECTIVE: Vital Signs: Temperature of 98.2 degrees, heart rate 71, respiratory rate 22, blood pressure 143/68, saturating 91% on room air. General: Patient is awake, lying in bed. No acute distress noted. HEENT: Anicteric. Pupils PERRLA. Mucous membranes appear to be moist. Cardiovascular: S1, S2. Regular rate and rhythm. Lungs: Bilateral breath sounds diminished bilaterally. Abdomen: Soft, nontender. Bowel sounds present in all 4 quadrants. Neurologic: Alert and oriented x3. No focal deficits noted. Laboratory Data: Potassium 3.6, BUN 9, creatinine 1.0. ASSESSMENT AND PLAN: 1. Non-Hodgkin's lymphoma: Lymphoma has been under control. 2. Immunoglobulin deficiency: Patient received IgG a couple of days ago. 3. Bilateral pneumonia: Continue antibiotics ordered by primary medical team and infectious disease. 4. Chronic thrombocytopenia: Platelet count of 75,000. Continue to just monitor at this time. 5. Supportive care: Continue to have patient get up as much as possible. The patient will continue exercises as instructed while in the hospital. We will sign off at this time and follow up patient in clinic when time for next dose of IVIG. Plan of care discussed with Dr. Aquino. Dictated by MICHAEL Gillespie for Tito Aquino MD Patient seen and examined. He reports that he is slowly getting stronger. He is status post IVIG at 800 mg Per kilogram. Plan for next dose in 4 weeks. Continue current therapy for pneumonia and Klebsiella infection. Lymphoma is well controlled at this time. Mild thrombocytopenia, which may get slightly worse before improving. No further recommendations from my standpoint. I will sign off. Please call with questions. Tito Aquino M.D. cc: MICHAEL Gillespie MD MTDD
--- NOTE | 2019-03-06 16:36 | PROGRESS NOTE ---
DATE: 03/06/2019 SUBJECTIVE: Mr. Dragan Martini is a 63-year-old male. He is in no acute distress. He is receiving his respiratory treatment when first visualized, but there is still no respiratory distress. The treatment ended and he states that he only gets occasionally short of breath with activity but is not as severe as it has been. He coughs up phlegm occasionally, but that is only clear. Denies any pain, fever, nausea, or vomiting. OBJECTIVE: Vital Signs: Temperature 98.9, heart rate 79, respiratory rate 22, blood pressure 155/79, O2 saturation 100% on room air. General: Mr. Dragan Martini is a 63-year-old male. He is in no acute distress. He is able to answer questions appropriately. Cardiovascular: S1, S2.. Regular rate and rhythm. No rubs, gallops, or murmurs. No lower extremity edema. +2 dorsalis and radial pulses. Negative JVD or carotid bruits. Pulmonary: Clear to auscultate, bilateral breath sounds, no accessory muscle use or work of breathing noted. GI: Soft, nontender, nondistended. Positive bowel sounds x4. Extremities: Moves all extremities equally. Left arm has a tremor to it. Skin: Warm, dry, and intact. LABORATORY DATA: No CBC today. BMP - sodium 140, potassium 3.6, BUN 9, creatinine 1, glucose 94, calcium 8.8. IMAGING: No recent imaging. ASSESSMENT AND PLAN: 1. Klebsiella pneumoniae pneumonia. Was being followed by Dr. Aquino. Currently antibiotic regimen includes cefepime 2 grams intravenously every eight hours. Other medications include Mucinex, Flonase, Zyrtec, Albuterol and Atrovent nebulizers every four hours, Mucomyst every two hours. 2. Sinusitis. Continue with antibiotics. 3. Parotiditis. Continue with antibiotic therapy. 4. Hypogammaglobinemia. Received IVIG this admit. Next treatment will be as outpatient with Dr. Aquino. 5. Non-Hodgkin lymphoma. Followed by Dr. Aquino and they have signed off today. 6. Chronic thrombocytopenia. Platelet count yesterday was at 75,000. Complete blood count will be repeated for in the morning. 7. Diarrhea. Resolved, he has no diarrhea. He has not had a bowel movement since yesterday. No stool has been obtained yet for Clostridium difficile check. 8. Hypertension. Continue Norvasc. 9. Parkinson's. Continue carbidopa/levodopa. 10. Insomnia. Continue with trazodone. 11. Deep venous thrombosis prophylaxis. Sequential compression devices. Dictated by MICHAEL Grigsby for Mojgan Seo MD cc: MICHAEL Grigsby MD I performed a face to face encounter on the patient. I reviewed all labs and imaging on the patient. I agree with the H&P as dictated. The patient states that he is no longer having diarrhea. He is very weak. Continue IV antibiotic therapy as recommended by . [facility] CENTERMacarena
--- NOTE | 2019-03-06 17:29 | INFECTIOUS DISEASE PROGRESS NO ---
DATE: 03/06/2019 PRESENT ILLNESS: Mr. Martini is being treated for Klebsiella pneumonia, paranasal sinusitis, and parotiditis. There is also a chronic immunoglobulin deficiency, treated by Dr. Aquino. MEDICATIONS: He is receiving cefepime 2 g IV every 8 hours as a single agent. Today is day 4. PHYSICAL EXAMINATION: Vital Signs: Temperature is 98.9 degrees, pulse rate 79, respiratory rate 22, blood pressure 155/79, O2 saturation 100% on room air. General: This is a chronically ill- appearing, middle-aged gentleman. He is sitting up in the bed currently in no acute distress. HEENT: Atraumatic, normocephalic. Oral mucous membranes are pink and moist. Conjunctivae are pink. Neck: Shows some swelling to the right side. Trachea is midline. Cardiovascular: Heart rate and rhythm are regular. Normal sinus rhythm on the monitor. Respiratory: Lung sounds are clear in the upper lobes. Diminished in the mid and bases. Abdomen: Soft, round and nontender. Bowel sounds are active. Neurologic: He is awake, alert, oriented, able to move all extremities with generalized weakness. There is a tremor noted to the upper extremities. LABORATORY AND X-RAY: No CBC today, but yesterday his white count was 3.71, hemoglobin 11.4, platelet count 75,000. Today, his creatinine is 1, estimated GFR is greater than 60. His sputum has grown a Klebsiella pneumoniae. Blood cultures have shown no growth in [address] of his neck done over the weekend shows paranasal sinusitis and the enlarged right parotid gland. ASSESSMENT AND PLAN: Mr. Martini is being treated for Klebsiella pneumonia, sinusitis, and parotiditis. He is on day 4 of cefepime, which we will continue at this time. He also has a mildly decreased immunoglobulin level, however, this does not merit a replacement at this point, and is being followed by Dr. Aquino. These plans have been discussed with and recommended by Dr. Aquino. COMORBIDITIES: For Mr. Martini include non-Hodgkin's lymphoma, COPD, Parkinson's disease, and immunoglobulin deficiency. Dictated by MICHAEL Sousa for Rafael Aquino MD This chart was documented by, MICHAEL Sousa and accurately reflects the services performed, treatment plan and medical decisions as attested by the providers signature Rafael Aquino MD. cc: Rafael qAuino MD MTDD
[2019-03-06] MEDS: MEVACOR PO SCH (21:18)
[2019-03-06] MEDS: ZYRTEC PO SCH (21:18)
[2019-03-06] MEDS: DESYREL PO SCH (21:19)
[2019-03-06] MEDS: XALATAN 0.005% OPH SOLN BOTH EYES SCH (21:19)
[2019-03-07] MEDS: DUONEB (A & A) INH SCH ×5 (03:10→19:55)
[2019-03-07] MEDS: MAXIPIME 2 GM in NS 100 ML IV SCH ×2 (05:05→11:32)
[2019-03-07] MEDS: MOVANTIK PO SCH ×2 (05:05→06:43)
[2019-03-07 06:58] LABS: BASO# 0.01 X1000 (0.0-0.2); BASO% 0.2 % (0.0-0.8); EOS# 0.12 X1000 (0.0-0.7); EOS% 2.6 % (0.0-10.0); HEMATOCRIT 33.1 % (42.0-52.0); HEMOGLOBIN 11.8 g/dL (14.0-18.0); LYMPH# 0.78 X1000 (1.2-3.4); LYMPH% 16.6 % (20.5-51.1); MCH 31.1 PG (27-31); MCHC 35.6 g/dL (33-37); MCV 87.3 FL (81-99); MONO# 0.26 X1000 (0.11-0.59); MONO% 5.5 % (1.7-9.3); MPV 9.8 FL (7.4-10.4); NEUT# 3.53 X1000 (1.4-6.5); NEUT% 75.1 % (42.2-75.2); PLT 69 X1000 (130-400); RBC 3.79 XMIL (4.7-6.1); RDW 11.1 % (11.5-14.5)
[2019-03-07 06:59] LABS: AGAP 10; BUN 10 mg/dL (8-22); CALCIUM 9.1 mg/dL (8.8-10.2); CHLORIDE 107 mmol/L (98-107); COSMO 278; CREATININE 0.9 mg/dL (0.7-1.2); ESTIMATED GFR > 60; GLUCOSE 94 mg/dL (70-104); POTASSIUM 3.4 mmol/L (3.5-5.1); SODIUM 140 mmol/L (136-145); TCO2 23 mmol/L (25-35)
[2019-03-07] MEDS: MUCOMYST 20% INH SCH ×2 (07:34→19:55)
[2019-03-07] MEDS: NS 1,000 ML IV SCH ×2 (08:31→10:49)
[2019-03-07] MEDS: TUSSIONEX LIQUID PO SCH ×2 (08:32→21:09)
[2019-03-07] MEDS: FOLIC ACID PO SCH (08:32)
[2019-03-07] MEDS: SINEMET 25/100 PO SCH ×3 (08:32→21:08)
[2019-03-07] MEDS: FLONASE NAS SCH (08:32)
[2019-03-07] MEDS: TESSALON PO SCH ×3 (08:32→21:08)
[2019-03-07] MEDS: MUCINEX PO SCH ×2 (08:32→21:08)
[2019-03-07] MEDS: NORVASC PO SCH ×2 (08:32→21:08)
--- NOTE | 2019-03-07 13:04 | PROGRESS NOTE ---
DATE: 03/07/2019 SUBJECTIVE: Mr. Dragan Martini is a 63-year-old male. He is in no acute distress. He is resting comfortably in bed, able to answer all questions appropriately. He states that his only complaint today is that he did not get very much sleep, as he had frequent urination due to the IV fluids running, so we will decrease the rate on that. It has been running at 75 mL an hour since 03/04/2019. Kidney function looks good, and we may be able to stop it. He states he does not take in a lot of oral fluids, so we will have to monitor for that. OBJECTIVE: Vital signs: Temperature 98.5, heart rate 69, respiratory rate 19, blood pressure 154/78, O2 saturation is 99% on room air. General: Mr. Dragan Martini is a 63-year-old male. He is in no acute distress, able to answer questions appropriately. Cardiovascular: S1 and S2. Regular rate and rhythm. No murmurs, rubs or gallops. Trace lower extremity edema. Plus 2 dorsalis and radial pulses. Negative JVD or carotid bruits. Pulmonary: Clear to auscultation with bilateral breath sounds. No accessory muscle use or work of breathing noted. GI: Soft, nontender and nondistended. Positive bowel sounds x4. DIAGNOSTIC DATA: White blood cells 4000, hemoglobin 11, hematocrit 33, platelet count 69. Sodium is 140, potassium 3.4, BUN is 10, creatinine 0.9, glucose 94, calcium 9.1. IMAGING: None. ASSESSMENT AND PLAN: 1. Klebsiella pneumoniae. He is being followed by Dr. Aquino. Antibiotic regimen of cefepime 2 g IV every 8 hours, probably day 5 now, with other medications including Mucinex, Flonase, Zyrtec, albuterol and Atrovent nebulizers every 4 hours, Mucomyst every 2 hours. 2. Sinusitis. Continue with cefepime. 3. Parotiditis. Continue with cefepime. 4. Hypogammaglobulinemia. Received IVIG this admit. Next treatment will be as an outpatient with Dr. Aquino. 5. Non-Hodgkin's lymphoma and has been signed off by Dr. Aquino since 03/06/2019. 6. Chronic thrombocytopenia. Yesterday, count was 75,000. It has dropped to 69,000 today. There are no signs or symptoms of bleeding. 7. Diarrhea. Resolved. Actually he is complaining of constipation now. He has not had a bowel movement in 2 days, he states, but he wants to wait one more day and then take something to assist with stools. 8. Hypertension. Norvasc. 9. Parkinson's. Carbidopa and levodopa. 10.Insomnia. Continue with trazodone, but he also states this is because he was having excessive urination at this time, and there are 8 recorded voids, so IV fluids will be decreased from 75 mL an hour to 50 mL an hour. There is no kidney dysfunction. 11.DVT prophylaxis with SCDs. Dictated by MICHAEL Grigsby for Sg Garcia MD cc: MICHAEL Grigsby MD I agree with the assessment and plan of the GEOTECHNICAL FIELD TECHNICIAN. Dr. Garcia. [facility]
[2019-03-07] MEDS: LEVAQUIN PO SCH (15:40)
--- NOTE | 2019-03-07 18:14 | INFECTIOUS DISEASE PROGRESS NO ---
DATE: 03/07/2019 PRESENT ILLNESS: The patient is being treated for Klebsiella pneumonia, paranasal sinusitis and parotitis. The patient also has a chronic immunoglobulin deficiency which is being treated by Dr. Aquino. In the past few days, the patient's platelet count has been dropping. MEDICATIONS: This is day 5 of treatment with cefepime. I plan on discontinuing cefepime and starting the patient on Levaquin because the patient's platelet count continues to fall. PHYSICAL EXAMINATION: Vital Signs: Temperature is 98.1 degrees, pulse 94, respirations 16, blood pressure 136/72. General: This is a chronically ill-appearing, middle-aged male. He is in no acute distress. Head, eyes, ears, nose, and throat: He can hear my spoken words and see near objects. He does not have any white patches on his tongue. Neck: No pain with movement of the neck. Lungs: Clear to auscultation. Cardiovascular: Heart rate is regular. Abdomen: Soft and nontender. Neurologic: The patient is alert. He can move his extremities. There is no tremor. LAB AND X-RAY: CBC shows a white count of 4700, hemoglobin 11.8, and platelet count 69,000. Sputum grew out Klebsiella. Creatinine is 0.9. GFR is greater than 60. ASSESSMENT AND PLAN: The patient is being treated for Klebsiella pneumonia, sinusitis, and parotitis. This is the 5th day of treatment with cefepime. Unfortunately, the patient's platelet count continues to fall and I think it is possible the cefepime is causing it. Therefore, I am going to discontinue cefepime and instead put the patient on Levaquin. As mentioned above, Dr. Aquino is managing the patient's immunoglobulin deficiency. COMORBIDITIES: Include non-Hodgkin lymphoma, COPD, Parkinson disease and immunoglobulin deficiency. cc: Rafael Aquino MD
[2019-03-07] MEDS: DESYREL PO SCH (21:08)
[2019-03-07] MEDS: XALATAN 0.005% OPH SOLN BOTH EYES SCH (21:08)
[2019-03-07] MEDS: MEVACOR PO SCH (21:08)
[2019-03-07] MEDS: ZYRTEC PO SCH (21:08)
[2019-03-08] MEDS: DUONEB (A & A) INH SCH ×7 (00:04→23:20)
[2019-03-08] MEDS: NS 1,000 ML IV SCH (05:34)
[2019-03-08] MEDS: MOVANTIK PO SCH ×2 (05:34→12:45)
[2019-03-08 06:37] LABS: BASO# 0.01 X1000 (0.0-0.2); BASO% 0.2 % (0.0-0.8); EOS# 0.12 X1000 (0.0-0.7); EOS% 2.9 % (0.0-10.0); HEMOGLOBIN 11.2 g/dL (14.0-18.0); LYMPH# 0.77 X1000 (1.2-3.4); LYMPH% 18.9 % (20.5-51.1); MCH 30.9 PG (27-31); MCV 88.2 FL (81-99); MONO# 0.28 X1000 (0.11-0.59); MONO% 6.9 % (1.7-9.3); MPV 9.6 FL (7.4-10.4); NEUT# 2.89 X1000 (1.4-6.5); NEUT% 71.1 % (42.2-75.2); PLT 63 X1000 (130-400); RBC 3.63 XMIL (4.7-6.1); RDW 11.1 % (11.5-14.5); WBC 4.07 X1000 (4.8-10.8)
[2019-03-08 06:48] LABS: AGAP 8; ALB/GLOB RATIO 1.1; ALBUMIN 3.3 g/dL (3.5-5.0); ALKALINE PHOSPHATASE 92 U/L (32-122); BUN 14 mg/dL (8-22); CALCIUM 8.9 mg/dL (8.8-10.2); CHLORIDE 104 mmol/L (98-107); COSMO 274; CREATININE 0.9 mg/dL (0.7-1.2); ESTIMATED GFR > 60; GLUCOSE 91 mg/dL (70-104); GOT 14 U/L (10-34); GPT 5 U/L (10-44); POTASSIUM 3.5 mmol/L (3.5-5.1); SODIUM 137 mmol/L (136-145); TCO2 25 mmol/L (25-35); TOTAL BILIRUBIN 0.29 mg/dL (0.20-1.00); TOTAL PROTEIN 6.4 g/dL (6.3-8.3)
[2019-03-08] MEDS: MUCOMYST 20% INH SCH ×2 (08:00→19:20)
[2019-03-08] MEDS: FOLIC ACID PO SCH (12:44)
[2019-03-08] MEDS: SINEMET 25/100 PO SCH ×3 (12:44→20:39)
[2019-03-08] MEDS: TUSSIONEX LIQUID PO SCH ×2 (12:44→20:40)
[2019-03-08] MEDS: NORVASC PO SCH ×2 (12:44→20:39)
[2019-03-08] MEDS: MUCINEX PO SCH ×2 (12:44→20:39)
[2019-03-08] MEDS: TESSALON PO SCH ×3 (12:44→20:40)
[2019-03-08] MEDS: FLONASE NAS SCH (12:45)
[2019-03-08] MEDS: LEVAQUIN PO SCH (12:45)
--- NOTE | 2019-03-08 15:18 | PROGRESS NOTE ---
DATE: 03/08/2019 SUBJECTIVE: Mr. Dragan Martini is a 63-year-old -[place] male. He is in no acute distress, is able to answer questions appropriately, states he still is having lots of urination and so we will stop the IV fluids. He is able to get around a little better than yesterday and generally he feels a little bit better. He does complain of some sinus drainage. OBJECTIVE: Vital signs: Temperature 98.8, heart rate 86, respiratory rate 14, blood pressure 102/53, O2 saturation 96% on room air. General: Mr. Dragan Martini is a 63-year-old - [place] male. He is in no acute distress. He is able to answer questions appropriately. Cardiovascular: S1, S2. Regular rate and rhythm. No rubs, gallops, or murmurs. Trace lower extremity edema, +2 dorsalis and radial pulses. Negative for JVD and carotid bruits. Pulmonary: Clear to auscultate bilateral breath sounds. No accessory muscle use or work of breathing noted. GI: Soft, nontender, nondistended. Positive bowel sounds x4. LABORATORY DATA: White blood cells 4000, hemoglobin 11, hematocrit 32, platelet count 63. Sodium 137, potassium 3.5, BUN is 14, creatinine 0.9, glucose 91, calcium 8.9, bilirubin 0.29, AST 14, ALT 5, albumin is 3.3. IMAGING: None. ASSESSMENT AND PLAN: 1. Klebsiella pneumonia being followed by Dr. Aquino. Was changed from cefepime to Levaquin yesterday due to the lower platelet count. Continue on Mucinex, Flonase, Zyrtec, albuterol and Atrovent nebulizers every 4 hours, and Mucomyst every 2 hours. 2. Sinusitis on Levaquin. 3. Parotiditis on Levaquin. 4. Hypogammaglobinemia. Has had IVIG this admit, will give the next one as an outpatient with Dr. Aquino. 5. Non-Hodgkin's lymphoma followed by Dr. Aquino, who signed off on 03/06. 6. Chronic thrombocytopenia but platelet count keeps dropping, is down from 69 down to 63 today. There are no signs or symptoms of bleeding but medication could be possibly be the culprit as well and so his antibiotic was changed from cefepime to Levaquin. 7. Diarrhea, resolved. Was actually constipated but had a good normal bowel movement today. 8. Hypertension. Norvasc. 9. Parkinson's. Carbidopa Levodopa. 10.Insomnia. Still feels like he was up too many times to void due to the IV fluids, those have been stopped. His kidney function is normal. 11.Deep venous thrombosis prophylaxis, sequential compression devices. Dictated by MICHAEL Grigsby for Sg Garcia MD cc: MICHAEL Grigsby MD Concur with assessment and plan of the GRANTS MANAGER. Dr. Garcia. [facility]
--- NOTE | 2019-03-08 19:09 | INFECTIOUS DISEASE PROGRESS NO ---
DATE: 03/08/2019 PRESENT ILLNESS: The patient is being treated for Klebsiella pneumonia, paranasal sinusitis, and parotitis. The patient also has an immunoglobulin deficiency which is being treated by Dr. Aquino. MEDICATIONS: This is day #6 of treatment for the patient's infection. Initially, the patient had cefepime, but when his platelet count started falling, he was switched from cefepime to Levaquin, so the patient between the cefepime and the Levaquin has a total of 6 days of treatment of his infections. PHYSICAL EXAMINATION: Vital Signs: Temperature is 98.4, pulse 79, respirations 16, blood pressure 144/78. General: This is a chronically ill-appearing, middle-aged male. He is in no acute distress. Head, Eyes, Ears, Nose and Throat: He can hear my spoken words and see near objects. He does not have any white coating on his tongue. Sinuses are not tender. Neck: No pain with movement of his head. Lungs: Clear to auscultation. Cardiovascular: Regular heart rate. Abdomen: Soft and nontender. Thorax: The patient has a Port-A-Cath in place. The site is not swollen or draining. Neurologic: Patient is alert. He ambulates without difficulty. The patient does have a tremor of his hands. LAB AND X-RAY: There is no new radiographic study done today. The CBC shows a white count of 4070, hemoglobin 11.2, and platelet count 63,000. Creatinine is 0.9. GFR is greater than 60. Liver function studies are normal. Stool for Clostridium difficile toxin and antigen is negative. Sputum culture grew Klebsiella. ASSESSMENT AND PLAN: Patient is being treated with Levaquin for the patient's Klebsiella pneumonia, sinusitis, and parotitis. As mentioned earlier, Dr. Aquino is managing the patient's immunoglobulin deficiency. COMORBIDITIES: The patient has non-Hodgkin's lymphoma, COPD, Parkinson's disease, and immunoglobulin deficiency. cc: Rafael Aquino MD [facility]
[2019-03-08] MEDS: DESYREL PO SCH (20:39)
[2019-03-08] MEDS: ZYRTEC PO SCH (20:39)
[2019-03-08] MEDS: XALATAN 0.005% OPH SOLN BOTH EYES SCH (20:40)
[2019-03-08] MEDS: MEVACOR PO SCH (20:40)
[2019-03-09] MEDS: DUONEB (A & A) INH SCH ×6 (03:25→23:30)
[2019-03-09] MEDS: MOVANTIK PO SCH ×2 (05:48→06:12)
[2019-03-09 07:00] LABS: BASO# 0.01 X1000 (0.0-0.2); BASO% 0.2 % (0.0-0.8); EOS# 0.12 X1000 (0.0-0.7); EOS% 2.6 % (0.0-10.0); HEMATOCRIT 32.4 % (42.0-52.0); HEMOGLOBIN 11.5 g/dL (14.0-18.0); LYMPH# 0.85 X1000 (1.2-3.4); LYMPH% 18.4 % (20.5-51.1); MCH 31.3 PG (27-31); MCHC 35.5 g/dL (33-37); MONO% 6.5 % (1.7-9.3); MPV 9.4 FL (7.4-10.4); NEUT# 3.34 X1000 (1.4-6.5); NEUT% 72.3 % (42.2-75.2); PLT 60 X1000 (130-400); RBC 3.68 XMIL (4.7-6.1); RDW 11.2 % (11.5-14.5); WBC 4.62 X1000 (4.8-10.8)
[2019-03-09 07:28] LABS: AGAP 10; ALB/GLOB RATIO 1.1; ALBUMIN 3.5 g/dL (3.5-5.0); ALKALINE PHOSPHATASE 93 U/L (32-122); BUN 16 mg/dL (8-22); CALCIUM 9.3 mg/dL (8.8-10.2); CHLORIDE 103 mmol/L (98-107); COSMO 278; ESTIMATED GFR > 60; GLUCOSE 84 mg/dL (70-104); GOT 14 U/L (10-34); GPT < 5 U/L (10-44); POTASSIUM 3.4 mmol/L (3.5-5.1); SODIUM 139 mmol/L (136-145); TCO2 26 mmol/L (25-35); TOTAL BILIRUBIN 0.34 mg/dL (0.20-1.00); TOTAL PROTEIN 6.6 g/dL (6.3-8.3)
[2019-03-09] MEDS: NORVASC PO SCH ×2 (07:59→22:43)
[2019-03-09] MEDS: TUSSIONEX LIQUID PO SCH ×2 (07:59→22:43)
[2019-03-09] MEDS: FOLIC ACID PO SCH (07:59)
[2019-03-09] MEDS: TESSALON PO SCH ×3 (08:00→22:42)
[2019-03-09] MEDS: FLONASE NAS SCH (08:00)
[2019-03-09] MEDS: SINEMET 25/100 PO SCH ×3 (08:00→22:42)
[2019-03-09] MEDS: LEVAQUIN PO SCH (08:00)
[2019-03-09] MEDS: MUCINEX PO SCH ×2 (08:00→22:42)
[2019-03-09] MEDS: MUCOMYST 20% INH SCH ×2 (08:08→19:30)
[2019-03-09] MEDS ORDERED: KLOR-CON PO ONE (15:05)
--- NOTE | 2019-03-09 16:10 | INFECTIOUS DISEASE PROGRESS NO ---
DATE: 03/09/2019 DISCHARGE NOTE: Mr. Martini is to be discharged today. We have sent a prescription electronically to his pharmacy for Levaquin 500 mg by mouth daily for 7 days, which will complete two weeks of treatment for his Klebsiella pneumonia, sinusitis and parotitis. We will then follow up with him in the office, and that appointment has already been made for Wednesday the . When we see him in the office, we will recheck a chest x-ray and follow up on his sinusitis and parotitis. These plans have been discussed with and recommended by Dr. Aquino. Dictated by MICHAEL Sousa for Rafael Aquino MD cc: Rafael Aquino MD [facility]
--- NOTE | 2019-03-09 21:31 | DISCHARGE SUMMARY ---
ADMISSION DATE: 03/01/2019 DISCHARGE DATE: 03/09/2019 ADMISSION DIAGNOSES: 1. Bilateral pneumonia. 2. Immunoglobulin deficiency. 3. Follicular non-Hodgkin lymphoma. 4. Parkinson disease. 5. Chronic obstructive pulmonary disease. 6. Chronic thrombocytopenia. 7. Hypertension. DISCHARGE DIAGNOSES: 1. Klebsiella pneumonia, followed by Dr. Aquino. He is going to go home on Levaquin. 2. Sinusitis and parotiditis. Both can be treated with Levaquin. 3. Hypogammaglobulinemia. Had IVIg this admission. Dr. Aquino will repeat in 4 weeks. 4. Non-Hodgkin lymphoma, followed by Dr. Aquino. Will follow up with him as an outpatient. 5. Chronic thrombocytopenia. Platelets were dropping. They are down to 60 today from 63. No signs or symptoms of bleeding. Will be followed by Dr. Aquino for this. 6. Diarrhea, resolved. Normal bowel movement today, as he actually was constipated. 7. Hypertension. Was started on Norvasc this admission. 8. Parkinson's, on carbidopa-levodopa, stable. 9. Insomnia secondary to frequent urination due to IV fluids. Those were stopped, and he said this was improved. HOSPITAL COURSE: Mr. Dragan Martini is a 63-year-old male who presented to the emergency department with the chief complaint of worsening shortness of breath and productive cough that he had had for several days. He noticed that his cough was worse with more shortness of breath with minimal exertion. Denied any fever but complained of poor appetite and insomnia and coughing up yellow phlegm. He had seen Dr. Aquino on 02/23 for the same symptoms of pneumonia and was given prescriptions for amoxicillin and Levaquin, and had been taking those as prescribed. His O2 saturation was 85% on room air, and a CT showed left lower lobe pneumonia with infiltrates in the right lower lobe, and so he was treated and started on broad-spectrum antibiotics, and was followed by Dr. Aquino, who then put him on cefepime, but day before yesterday transitioned him to Levaquin due to the continued drop in platelet count. He was also followed by Dr. Aquino, who performed an IVIg treatment on him while he was in here. His sputum culture came back with Klebsiella pneumoniae which was resistant to ampicillin and sulbactam. He had some diarrhea while he was in here which was C difficile negative. At one point in time he complained of some neck swelling and had a CT performed of the neck which showed an enlarged right parotid gland with heterogeneous enhancement and surrounding edema related to the parotiditis, which he was diagnosed with as well, and there was extensive paranasal sinus disease too, but the antibiotics helped with that. He continued to improve and was appropriate for discharge home. DISCHARGE VITAL SIGNS: Temperature 97.6, heart rate 77, respiratory rate 20, blood pressure 122/66, O2 saturation 99% on room air. DISCHARGE LABORATORY DATA: White blood cells 4000, hemoglobin 11, hematocrit 32, platelet count 60, sodium 139, potassium 3.4, BUN 16, creatinine 1.0, glucose 84. Bilirubin 0.34, AST 14, ALT less than 5. Albumin is 3.5. PERTINENT IMAGING: On 03/01/2019, he had a chest x-ray which showed a stable chest, but then had a chest CT which showed COPD, left lower lobe bronchopneumonia, and minimal pneumonitis or bronchopneumonia in the right lower lobe as well. On 03/04/2019 he had an abdominal x-ray which showed residual barium in the colon and rectum but nonspecific bowel gas pattern. Also on 03/04/[address] which showed the parotiditis and the sinusitis. He had an EKG on admission which showed normal sinus rhythm, rate 88. QTc was 467. On March 02 he had a modified barium swallow which also a negative exam. He had a good swallow mechanism. DISCHARGE MEDICATIONS: To be reconciled by Dr. Garcia prior to discharge. DISCHARGE DIET: Regular diet with protein shakes at each meal. DISCHARGE ACTIVITY: As tolerated. DISCHARGE FOLLOWUP: With Dr. Aquino, Dr. Villalobos, and Dr. Aquino. DISCHARGE INSTRUCTIONS: If your condition changes, contact your physician and/or return to the emergency department. Changes may include but are not limited to: Shortness of breath, increased fatigue, excessive bleeding, unexplained weight loss or gain, unimaginable pain, or signs or symptoms of infection. Also will need to have IVIg again in [address] Aquino. Take medications as prescribed. DISCHARGE DISPOSITION: Home. Dictated by MICHAEL Grigsby for Sg Garcia MD cc: MICHAEL Grigsby MD
[2019-03-09] MEDS: MEVACOR PO SCH (22:41)
[2019-03-09] MEDS: DESYREL PO SCH (22:42)
[2019-03-09] MEDS: ZYRTEC PO SCH (22:42)
[2019-03-09] MEDS: XALATAN 0.005% OPH SOLN BOTH EYES SCH (22:44)
[2019-03-10] MEDS: DUONEB (A & A) INH SCH ×3 (03:35→11:09)
[2019-03-10 06:44] LABS: BASO# 0.01 X1000 (0.0-0.2); BASO% 0.2 % (0.0-0.8); EOS# 0.14 X1000 (0.0-0.7); EOS% 3.2 % (0.0-10.0); HEMATOCRIT 32.2 % (42.0-52.0); HEMOGLOBIN 11.5 g/dL (14.0-18.0); LYMPH% 20.5 % (20.5-51.1); MCH 31.6 PG (27-31); MCHC 35.7 g/dL (33-37); MCV 88.5 FL (81-99); MONO# 0.25 X1000 (0.11-0.59); MONO% 5.7 % (1.7-9.3); NEUT% 70.4 % (42.2-75.2); PLT 60 X1000 (130-400); RBC 3.64 XMIL (4.7-6.1); RDW 11.2 % (11.5-14.5)
[2019-03-10 07:16] LABS: AGAP 10; ALB/GLOB RATIO 1.3; ALBUMIN 3.7 g/dL (3.5-5.0); ALKALINE PHOSPHATASE 93 U/L (32-122); BUN 17 mg/dL (8-22); CALCIUM 9.2 mg/dL (8.8-10.2); CHLORIDE 104 mmol/L (98-107); COSMO 280; CREATININE 0.9 mg/dL (0.7-1.2); ESTIMATED GFR > 60; GLUCOSE 108 mg/dL (70-104); GOT 14 U/L (10-34); GPT 5 U/L (10-44); POTASSIUM 3.8 mmol/L (3.5-5.1); SODIUM 139 mmol/L (136-145); TCO2 25 mmol/L (25-35); TOTAL BILIRUBIN 0.34 mg/dL (0.20-1.00); TOTAL PROTEIN 6.6 g/dL (6.3-8.3)
[2019-03-10] MEDS: MUCOMYST 20% INH SCH (07:27)
[2019-03-10] MEDS: MUCINEX PO SCH (08:03)
[2019-03-10] MEDS: FOLIC ACID PO SCH (08:03)
[2019-03-10] MEDS: LEVAQUIN PO SCH (08:03)
[2019-03-10] MEDS: TUSSIONEX LIQUID PO SCH (08:03)
[2019-03-10] MEDS: NORVASC PO SCH (08:03)
[2019-03-10] MEDS: TESSALON PO SCH (08:03)
[2019-03-10] MEDS: SINEMET 25/100 PO SCH (08:03)
[2019-03-10] MEDS: FLONASE NAS SCH (08:08)
[2019-03-10 08:17] VITALS: BP 104/75
== END 2019-03-10 12:48 | disposition home health service (06) | DRG 178 ==
LOC: ED 10:03 → EDIPHOLD 22:24 → SUATTDRO 22:24 → 4N 03-02 15:59
PROVIDERS: ATTEND Internal Medicine
CPT/HCPCS: 70491; 71010; 71045; 71250; 74019; 74020; 74230; 80048; 80053; 81001; 82550; 82784; 82805; 83605; 83735; 83880; 84484; 85025; 85027; 85379; 85610; 85730; 87040; 87070; 87077; 87186; 87205; 87275; 87276; 87324; 87449; 87804; 92611; 93005; 94640; 94760; 94761; 94799; 96365; 96366; 96367; 96375; 99285; A9270; J0692; J1561; J2405; J3370; J7030; J7040; J7050; Q9967